=== PATIENT | female | born 1990 | race African-American/Black ===

== ENCOUNTER 2019-12-06 07:46 | Emergency (ER) | payer OTHER, SELFPAY ==
--- NOTE | ~2019-12-06 | XR_ITS ---
EXAMINATION: XR chest 2V DATE: 12/06/2019 09:22 INDICATION: Midline chest pain. Cough, shortness of breath, and fever. TECHNIQUE: Frontal and lateral views of the chest were obtained. COMPARISON: Chest 2 views 09/03/2019 FINDINGS: The chest demonstrates clear lungs without pneumonia, pleural effusion, or pneumothorax. Th e heart size is normal. Pectus excavatum is noted. IMPRESSION: 1. No acute cardiopulmonary disease. Reviewed, dictated and finalized at location A. MARKETING MANAGER
[2019-12-06 08:08] VITALS: BP 120/73; PULSE 106; RESP 20; TEMP 37; O2SAT 100
--- NOTE | 2019-12-06 08:25 | ECG_ITS ---
Measurements Intervals [place] Rate: 105 P: 80 HI: 114 QRS: 68 QRSD: 82 T: 49 QT: 339 QTc: 450 Interpretive Statements SINUS TACHYCARDIA WITH SHORT HI INTERVAL POSSIBLE LEFT ATRIAL ENLARGEMENT INCOMPLETE RIGHT BUNDLE BRANCH BLOCK BASELINE ARTIFACT- I, III, AVL, V1, V3 ABNORMAL ECG Electronically Signed On 12-06-2019 9:24:38 [employer] SCIENT[employer] by Alfredito Hogue D.O.
[2019-12-06 08:54] VITALS: PULSE 84
[2019-12-06 09:42] LABS: Hematocrit 38.3 % (37.0-47.0); Hemoglobin 12.3 g/dL (12.0-15.0); Immature Platelet Fraction Pct 4.2 % (0.9-11.2); Mean Corpuscular HGB Conc 32.1 g/dl (32-36); Mean Corpuscular Hemoglobin 27.5 pg (26-34); Mean Corpuscular Volume 85.5 fl (80-100); Mean Platelet Volume 11.3 fl (7.4-10.4); Platelet Count Result 109 k/mm3 (150-375); Red Blood Count 4.48 M/mm3 (4.2-5.4); Red Cell Distribution Width 13.6 % (11.5-14.5); White Blood Count 2.6 K/mm3 (4.5-10.0)
[2019-12-06 09:50] LABS: INR 0.9; Partial Thromboplastin Time 28.3 SECONDS (22.3-36.8); Prothrombin Time 11.3 Seconds (11.1-14.7)
[2019-12-06 09:52] LABS: Alanine Aminotransferase 62 U/L (4-35); Alkaline Phosphatase 59 U/L (38-126); Aspartate Amino Transferase 41 U/L (14-36); Bilirubin,Total 0.6 mg/dL (0.2-1.3); Blood Urea Nitrogen 9 mg/dL (7-17); Calcium 8.6 mg/dL (8.4-10.2); Carbon Dioxide 26 mmol/L (22-30); Chloride 101 mmol/L (98-107); Estimated CRCL calculation 105 ml/min; Estimated Glomerular Filt Rate > 60; Glucose 98 mg/dL (65-105); Lipase 121 U/L (23-300); Potassium 3.6 mmol/L (3.4-5.0); Sodium 136 mmol/L (137-145)
[2019-12-06 09:53] LABS: D Dimer 0.33 ug/mL (<0.48)
--- NOTE | 2019-12-06 09:55 | ED.SOB ---
HPI - SOB/Dyspnea General Chief Complaint: Shortness of Breath/Dyspnea Stated Complaint: SOB, CP, Cough Time Seen by Provider: 12/06/19 08:17 Source: patient and RN notes reviewed Mode of arrival: ambulatory Limitations: no limitations History of Present Illness HPI Narrative: Pt is a 29 y/o female presenting to the ED c/o cough. Pt reports she started experiencing a dry cough about 2 days ago. Pt also reports pain with cough, N/V after coughing this morning, SOB when coughing, fever of 101 F last night, congestion, and rhinorrhea, but denies ABD pain, BLE swelling, or BLE pain. Pt states she ate and consumed fluids adequately yesterday but has not had anything to eat this morning. Pt states she has positive sick contact with her kids, but denies any of them having the Flu. Pt states she is currently being medicated for possible having Crohn's disease or Ulcerative Colitis, and notes she sees Dr. Aguilera as her GI. Pt notes she had a Colonoscopy in October at [facility]. Pt states she is not currently on control, is not a smoker, and also denies a chance of being . Pt states she has not had any long car ride or air travel recently. Onset (ago): day(s) (2) Context: other (Positive sick contact with children at home) Associated symptoms: fever (of 101 F), nausea/vomiting and other (Pain with cough; SOB when coughing; nasal congestion; rhinorrhea) Related Data Home Medications Medication Instructions Recorded Confirmed folic acid 1 mg PO DAILY 12/06/19 prednisone 40 mg PO DAILY 12/06/19 sulfasalazine 1,000 mg PO TID 12/06/19 Allergies Allergy/AdvReac Type Severity Reaction Status Date / Time No Known Allergies Allergy Unknown Verified 09/03/19 08:40 Review of Systems Review of Systems: Narrative: CONSTITUTIONAL: Reports fever of 101 F. ENT: Reports congestion and rhinorrhea. RESPIRATORY: Reports dyspnea when coughing, dry cough, and pain with cough. GASTROINTESTINAL: Reports nausea and vomiting. Denies abdominal pain. MUSCULOSKELETAL: Denies BLE swelling or BLE pain. All systems reviewed & are unremarkable except as noted in HPI and below PMFSH Past Medical History Medical History No significant past medical history Surgical History Surgical History History of Social History Social History Smoking status: Never smoker Gender identity (if verbalized by the patient): Female Exam Narrative: Exam Narrative: GENERAL: Well-appearing, well-nourished, and in no acute distress. EYES: EOMI. NECK: Supple. CHEST: Clear to auscultation. No respiratory distress. No chest wall tenderness. HEART:Tachycardic with regular rhythm. No murmur heard. Normal peripheral pulses. ABDOMEN: Soft, nontender, nondistended, normal active bowel sounds. EXTREMITIES: Normal range of motion. No edema. No BLE calf tenderness. SKIN: Warm, dry, no rash. NEURO: No focal deficits. Alert and oriented. Course Course Emergency Course: Patient presented for evaluation of febrile illness, found to be afebrile, no respiratory distress. She was reporting some chest pain along with cough and congestion type symptoms. Influenza swab is negative. Patient's EKG and labs are without significant high risk changes. Cardiac risk factors reviewed. Patient is felt low risk for ACS and reasonable for further risk stratification testing as an outpatient. Pain was not sudden or maximal or onset without tearing or ripping quality. No other signs or symptoms to suggest aortic dissection. A low risk well's criteria is noted, PE is felt to be unlikely and d-dimer is not elevated. No pneumonia seen on evaluation today. Patient did well with a period of observation in the ER. No episodes of hypoxia, dysrhythmias. She may have a nonspecific respiratory viral illness as revealed influenza swab is negative. She flores
[2019-12-06 10:04] LABS: Troponin I < 0.012 ng/mL (0.000-0.034)
[2019-12-06] MEDS: FAMOTIDINE 20 MG/2 ML VIAL IV PUSH (10:08)
[2019-12-06] MEDS: ONDANSETRON INJ 4 MG/2 ML VIAL IV PUSH (10:08)
[2019-12-06] MEDS: SODIUM CHLORIDE 0.9% IV 1,000 ML 999 ML IV CONT (10:08)
[2019-12-06 10:10] LABS: Band Neutrophils Percent 7 % (0-6); Lymphocytes Absolute Manual 0.52 K/mm3 (1.1-4.5); Monocytes Absolute Manual 0.07 K/mm3 (0.1-0.90); Monocytes Percent Manual 3 % (3-9); Neutrophils Percent Manual 70 % (46-73); Total Cells Counted 100
[2019-12-06 10:12] LABS: Hypochromasia 2+ (NORMAL); Platelet Estimate Decreased (Adequate)
[2019-12-06 10:26] LABS: Add Urine Microscopic? YES; Appearance Urine Clear (Clear); Bacteria Urine Trace /hpf; Bilirubin Urine Negative (Negative); Blood Urine Negative (Negative); Color Urine Yellow (Yellow); Glucose Urine UA Negative (Negative); Ketones Urine 1+ mg/dL (Negative); Leukocyte Esterase Ur Negative LEU/UL (Negative); Mucus Urine Rare /lpf; Nitrate Urine Negative (Negative); Protein Urine Negative (Negative); RBC Urine 0-2 /hpf (0-2); Specific Grav Ur 1.024 (1.001-1.035); Squamous Epithelial Cell Urine Rare /hpf (Few); Urobilinogen Urine Negative mg/dL (<2.0)
[2019-12-06 10:49] VITALS: BP 112/78; PULSE 84; RESP 18; O2SAT 99
[2019-12-06 12:14] VITALS: BP 106/70; PULSE 72; RESP 18; O2SAT 99
== END 2019-12-06 12:16 | disposition home or self-care (01) ==
PROVIDERS: Emergency Provider Emergency Medicine; PCP Nurse Practitioner Family
DX: R07.89 Other chest pain (principal); J06.9 Acute upper respiratory infection, unspecified; R00.0 Tachycardia, unspecified; R94.31 Abnormal electrocardiogram [ECG] [EKG]; I45.10 Unspecified right bundle-branch block
CPT/HCPCS: 36415; 71046; 80053; 81001; 83690; 84443; 84484; 85025; 85055; 85380; 85610; 85730; 87804; 93005; 96361; 96365; 96375; 99284; J0131; J2405; J7030

== ENCOUNTER 2023-07-05 08:35 | Emergency (ER) | payer OTHER, SELFPAY ==
--- NOTE | ~2023-07-05 | CT_ITS ---
CT of the Abdomen and Pelvis: Indication: Abdominal pain Technique: 2.5 mm axial scans were obtained through the abdomen and pelvis following intravenous adm inistration of 100 cc of Omnipaque 350. Dose reduction technique was used on this scan by utilizing a utomated exposure control and iterative reconstruction technique. The dose-length product (DLP) was 3 98.13 mGy-cm. Findings: Scans through the lung bases are unremarkable. The liver, spleen, pancreas, gallbladder, adrenals and kidneys are within normal limits. No evidence of aortic aneurysm. No lymphadenopathy. No bowel obstruction or bowel wall thickening. There is no evidence to suggest acute appendicitis. Images through the pelvis were performed. Urinary bladder unremarkable. Small bilateral adnexal cysts are present. No other adnexal mass seen. No ascites. Impression: Small bilateral adnexal cysts, otherwise unremarkable exam. Reviewed, dictated and finalized at [facility]. Impression: Small bilateral adnexal cysts, otherwise unremarkable exam.
[2023-07-05 08:39] VITALS: BP 127/70; PULSE 91; RESP 16; TEMP 37; O2SAT 99
[2023-07-05 08:50] VITALS: O2SAT 100
[2023-07-05 09:00] VITALS: O2SAT 100
[2023-07-05 09:01] VITALS: BP 132/103
[2023-07-05 09:16] VITALS: BP 136/89
--- NOTE | 2023-07-05 09:23 | ED.GENADULT ---
[facility] - General Adult General Chief complaint: Back Pain/Injury Stated complaint: back pain Time Seen by Provider: 07/05/23 08:58 Source: patient Mode of arrival: ambulatory Limitations: no limitations History of Present Illness HPI narrative: This is a 32-year-old female with PMH of UC who presents to the ED with chief complaint of lower back pain for the past 3 days. Patient reports it is in both sides of the lower back and acutely radiate into the buttocks area. She reports that it also occasionally radiates into the right lower abdomen. Patient states that she has been having loose stools but no more than usual with her ulcerative colitis. She is unsure if this is a UC flare or not. She has good follow-up with her GI doctor. 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 Denies any specific injuries. Reports that pain is worse with certain movements especially with rotation of the back. Denies fevers, chills, nausea, vomiting, chest pain, shortness of breath, cough, urinary symptoms. Related Data Home Medications Medication Instructions Recorded Confirmed folic acid 1 mg tablet 1 mg PO DAILY 12/06/19 prednisone 20 mg tablet 40 mg PO DAILY 12/06/19 sulfasalazine 500 mg tablet 1,000 mg PO TID 12/06/19 Allergies Allergy/AdvReac Type Severity Reaction Status Date / Time No Known Allergies Allergy Unknown Verified 09/03/19 08:40 Review of Systems Review of Systems: All systems as dictated in [facility] Past Medical History Medical History (Updated 07/05/23 @ 11:09 by Wes Bishop PA-C) No significant past medical history Surgical History Surgical History History of Social History Social History Smoking status: Never smoker Gender identity (if verbalized by the patient): Female Exam Narrative: GENERAL: Well-appearing, well-nourished, and in no acute distress. HEAD: Normocephalic, atraumatic. EYES: PERRLA and EOMI. ENT: Nares clear, no rhinorrhea or epistaxis. Mucous membranes moist. Oropharynx without tonsillar hypertrophy exudate or other lesions. NECK: Supple. No adenopathy or masses. CHEST: No respiratory distress. Clear to auscultation. No wheezes rales or rhonchi HEART: Regular rate and rhythm. No murmur heard. Normal peripheral pulses. ABDOMEN: Negative flank tenderness bilaterally. Soft, nontender, nondistended, normal active bowel sounds. MSK: Paraspinal lumbar muscle tenderness bilaterally. SI joint tenderness bilaterally. Negative straight leg raise. Pain worsened with active rotation of the spine bilaterally. No midline spinal tenderness. SKIN: Warm, dry, no rash. NEURO: Alert and oriented x3. No focal deficits. PSYCH: Normal mood and affect. Course Course Emergency Course: Reevaluation 1000: Examination shows patient is doing very well. Abdominal exam benign. She is ready to go home. Vital Signs Vital signs: Vital Signs Temperature 98.6 F 07/05/23 08:39 Pulse Rate 91 07/05/23 08:39 Respiratory Rate 16 07/05/23 08:39 Blood Pressure 127/70 07/05/23 08:39 Pulse Oximetry 99 07/05/23 08:39 Oxygen Delivery Room Air 07/05/23 08:39 Temperature 98.6 F 07/05/23 08:39 Pulse Rate 91 07/05/23 08:39 Respiratory Rate 16 07/05/23 08:39 Blood Pressure 135/68 07/05/23 10:06 Pulse Oximetry 100 07/05/23 09:00 Oxygen Delivery Room Air 07/05/23 08:39 Medical Decision Making MDM Narrative Medical decision making narrative: This is a 32-year-old female who presents to the ED with chief complaint of right lower back pain occasionally radiating into the right lower abdomen. Vitals are normal. Exam does reveal tenderness in the paraspinal lumbar region. Lab work is unremarkable. UA is negative for any infection. CT scan of the abdomen pelvis was ordered and does not show any
[2023-07-05 09:26] LABS: Basophils Percent Auto 0.4 % (0.2-1.2); Eosinophils Absolute Auto 0.1 K/mm3 (0-0.3); Eosinophils Percent Auto 2.4 % (0-4.4); Hematocrit 38.7 % (37.0-47.0); Hemoglobin 12.3 g/dL (12.0-15.0); Immature Granulocyte Absolute 0.01 K/mm3 (0.00-0.031); Immature Granulocyte Percent A 0.2 % (0-0.5); Lymphocytes Absolute Auto 1.52 K/mm3 (0.9-3.2); Lymphocytes Percent Auto 30.9 % (18.3-44.2); Mean Corpuscular HGB Conc 31.8 g/dl (32-36); Mean Corpuscular Hemoglobin 27.4 pg (26-34); Mean Corpuscular Volume 86.2 fl (80-100); Mean Platelet Volume 11.1 fl (7.4-10.4); Monocytes Absolute Auto 0.3 K/mm3 (0.1-0.6); Monocytes Percent Auto 6.7 % (2.6-8.5); Neutrophils Absolute Auto 2.9 K/mm3 (1.3-6.7); Neutrophils Percent Auto 59.4 % (45.5-73.1); Platelet Count Result 178 k/mm3 (150-375); Red Blood Count 4.49 M/mm3 (4.2-5.4); Red Cell Distribution Width 14.1 % (11.5-14.5); White Blood Count 4.9 K/mm3 (4.5-10.0)
[2023-07-05 09:39] LABS: Alanine Aminotransferase 28 U/L (6-35); Alkaline Phosphatase 65 U/L (38-126); Anion Gap 3 mmol/L (8-16); Aspartate Amino Transferase 27 U/L (14-36); Bilirubin,Total 0.7 mg/dL (0.2-1.3); Blood Urea Nitrogen 13 mg/dL (7-17); Calcium 8.7 mg/dL (8.4-10.2); Carbon Dioxide 29 mmol/L (22-30); Chloride 106 mmol/L (98-107); Estimated CRCL calculation 80 ml/min; Estimated Glomerular Filt Rate > 60; Glucose 98 mg/dL (65-110); Potassium 3.9 mmol/L (3.4-5.0); Sodium 138 mmol/L (137-145)
[2023-07-05 09:55] LABS: Appearance Urine Clear (Clear); Bilirubin Urine Negative (Negative); Blood Urine Negative (Negative); Color Urine Yellow (Yellow); Glucose Urine UA Negative (Negative); Ketones Urine Trace mg/dL (Negative); Leukocyte Esterase Ur Negative LEU/UL (Negative); Nitrate Urine Negative (Negative); Protein Urine Negative (Negative); Specific Grav Ur 1.031 (1.001-1.035); pH Urine 5.5 (5.0-9.0)
[2023-07-05 10:06] VITALS: BP 135/68
[2023-07-05 10:09] LABS: Add Urine Microscopic? NO
== END 2023-07-05 11:33 | disposition home or self-care (01) ==
PROVIDERS: Emergency Provider Physician Assistant; PCP Physician Assistant
DX: S39.012A Strain of muscle, fascia and tendon of lower back, initial encounter (principal); X58.XXXA Exposure to other specified factors, initial encounter
CPT/HCPCS: 36415; 74177; 80053; 81003; 81025; 85025; 99284; Q9967

== ENCOUNTER 2024-01-31 16:32 | Emergency (ER) | payer OTHER, SELFPAY ==
[2024-01-31 16:58] VITALS: BP 123/71; PULSE 88; RESP 16; TEMP 37.4; O2SAT 100
--- NOTE | 2024-01-31 17:02 | ED.DENTAL ---
HPI - Dental/Oral General Chief complaint: Dental/Oral Stated complaint: right tooth pain Time Seen by Provider: 01/31/24 17:02 Source: patient, RN notes reviewed and old records reviewed Mode of arrival: ambulatory Limitations: no limitations History of Present Illness HPI Narrative: 33-year-old female presents to the [facility] with complaints of right-sided dental issue as well as a loose right-sided tooth. States she has recently been diagnosed with an abscess to the right upper 1st molar however she has had dental issues for ?a while. Recently finished. Currently denies any pain. Was concerned that the tooth is not getting any better. Patient reports a dental appointment at end of March in the [facility] prior to arrival: other (Antibiotics) Related Data Home Medications Medication Instructions Recorded Confirmed drospirenone (contraceptive) 4 mg 01/31/24 () tablet (Slynd) mesalamine 4 gram/60 mL enema g RECTAL 01/31/24 Allergies Allergy/AdvReac Type Severity Reaction Status Date / Time No Known Allergies Allergy Unknown Verified 09/03/19 08:40 Review of Systems Review of Systems: All systems reviewed & are unremarkable except as noted in HPI and below Constitutional: Constitutional: Reports no additional constitutional complaints Eyes: Eyes: Reports no additional eye complaints ENT: Reports as per HPI Cardiovascular: Cardiovascular: Reports no additional cardiovascular complaints, Denies chest pain and Denies dyspnea Respiratory: Respiratory: Reports no additional respiratory complaints, Denies chest congestion, Denies cough and Denies dyspnea Gastrointestinal: Gastrointestinal: Reports no additional gastrointestinal complaints, Denies abdominal pain, Denies nausea and Denies vomiting Musculoskeletal: Musculoskeletal: Reports no additional musculoskeletal complaints Integumentary/Breasts: Skin/Breast: Reports system reviewed and no additional complaints, except as docu Neurologic: Reports system reviewed and no additional complaints, except as documented Psychiatric: Psychiatric: Reports no additional psychiatric complaints Allergic/Immunologic: Allergic/Immunologic: Reports no additional allergic/immunologic complaints PMFSH Past Medical History Medical History No significant past medical history Surgical History Surgical History History of Social History Social History Smoking status: Never smoker Gender identity (if verbalized by the patient): Female Comments At the time of my signature, I reviewed and agree with the nursing past medical, surgical, social, and family history. There is no relevant family history pertinent to the patient complaint. Exam Const: General: cooperative, healthy appearing, comfortable, no acute distress, well developed, alert and well nourished Nutritional Appearance: well nourished Orientation/consciousness: patient oriented x3 Limitations: no limitations HENMT: Head: normal to inspection Ears: hearing grossly normal bilaterally, external ears normal, TM's normal bilaterally, EAC's normal, mastoids normal and no periauricular adenopathy Face/Nose/Sinus: Normal external nose present, Normal nares present, Normal nasal mucous membranes and turbinates present, normal facial exam and face symmetric Face and sinus: normal facial exam and face symmetric Mouth: Yes Normal oral and palatal mucosa present, Yes lip normal and Yes moist mucous membranes Teeth and gingiva: gingiva normal, caries and poor dentition Throat: posterior oropharynx normal, uvula midline and no uvular edema Other: Patient with poor dentition, concern for 1st molar crack, no erythema, pain, swelling noted to the gingiva. Discussed with patient that [facility]
== END 2024-01-31 17:37 | disposition home or self-care (01) ==
PROVIDERS: Emergency Provider Nurse Practitioner; PCP Physician Assistant
DX: K02.9 Dental caries, unspecified (principal)
CPT/HCPCS: 99211; G0463

== ENCOUNTER 2024-08-07 18:41 | Emergency (ER) | payer OTHER, SELFPAY ==
--- NOTE | ~2024-08-07 | XR_ITS ---
Clinical Indication: Chest pain PA and lateral views of the chest: Comparison: 12/06/2019 Findings: The lungs are clear, without evidence of focal consolidation or pleural effusion. Cardiome diastinal silhouette is within normal limits. Bones and soft tissues are unremarkable. Impression: Normal chest. Reviewed, dictated and finalized at location . Impression: Normal chest.
[2024-08-07 18:45] VITALS: BP 128/82; PULSE 124; RESP 17; TEMP 36.4; O2SAT 100
--- NOTE | 2024-08-07 18:45 | ECG_ITS ---
Test Date: 2024-08-07 18:53:29 Measurements Intervals [place] Rate: 119 P: 76 WV: 127 QRS: 67 QRSD: 90 T: 57 QT: 329 QTc: 464 Interpretive Statements SINUS TACHYCARDIA POSSIBLE LEFT ATRIAL ENLARGEMENT [-0.1mV P WAVE IN V1/V2] NONSPECIFIC T-WAVE ABNORMALITY ABNORMAL RHYTHM ECG No previous ECG available for comparison Electronically Signed On 08-08-2024 10:37:45 CDT by Zeus Chairez M.D.
[2024-08-07 23:24] VITALS: O2SAT 100
[2024-08-07 23:59] VITALS: PULSE 102; RESP 16; O2SAT 100
[2024-08-08] VITALS: PULSE 90; RESP 14; O2SAT 100
[2024-08-08 00:01] VITALS: BP 115/67; PULSE 90; RESP 22; O2SAT 100
[2024-08-08 00:16] VITALS: BP 104/68; PULSE 86; RESP 22; O2SAT 100
[2024-08-08 00:17] VITALS: PULSE 85; RESP 19; O2SAT 100
[2024-08-08 00:28] LABS: Basophils Absolute Auto 0.1 K/mm3 (0.0-0.1); Basophils Percent Auto 0.6 % (0.2-1.2); Eosinophils Absolute Auto 0.2 K/mm3 (0-0.3); Hematocrit 41.7 % (37.0-47.0); Hemoglobin 13.8 g/dL (12.0-15.0); Immature Granulocyte Absolute 0.02 K/mm3 (0.00-0.031); Immature Granulocyte Percent A 0.2 % (0-0.5); Lymphocytes Absolute Auto 1.93 K/mm3 (0.9-3.2); Lymphocytes Percent Auto 22.3 % (18.3-44.2); Mean Corpuscular HGB Conc 33.1 g/dl (32-36); Mean Corpuscular Hemoglobin 28.3 pg (26-34); Mean Corpuscular Volume 85.6 fl (80-100); Mean Platelet Volume 11.9 fl (7.4-10.4); Monocytes Absolute Auto 0.4 K/mm3 (0.1-0.6); Monocytes Percent Auto 5.1 % (2.6-8.5); Neutrophils Percent Auto 69.8 % (45.5-73.1); Platelet Count Result 225 k/mm3 (150-375); Red Blood Count 4.87 M/mm3 (4.2-5.4); White Blood Count 8.6 K/mm3 (4.5-10.0)
--- NOTE | 2024-08-08 00:28 | ED.GENADULT ---
HPI - General Adult General Chief complaint: Chest Pain Stated complaint: midsternal chest pain since this am Time Seen by Provider: 08/07/24 23:55 History of Present Illness HPI narrative: Patient 33-year-old female who presents emergency department with chief complaint of chest pain. Patient reports she started having sharp pleuritic pain in the left side of her chest in the sternal border patient reports the pain is worse with inspiration worse with movement. The patient reports no trauma reports that she has history of ulcerative colitis. Related Data Home Medications Medication Instructions Recorded Confirmed drospirenone (contraceptive) 4 mg 01/31/24 () tablet (Slynd) mesalamine 4 gram/60 mL enema g RECTAL 01/31/24 Allergies Allergy/AdvReac Type Severity Reaction Status Date / Time ketorolac [From Toradol] AdvReac Dizziness Verified 08/07/24 18:43 Review of Systems Review of Systems: A 10 system review of systems was completed on the patient and is negative except for what is stated in the HPI. Nursing and ancillary documentation was reviewed. [facility] Past Medical History Medical History (Updated 08/08/24 @ 01:52 by Bronson Simpson MD) No significant past medical history Surgical History Surgical History History of Social History Social History Smoking status: Never smoker Gender identity (if verbalized by the patient): Female Exam Narrative: GENERAL: Well-appearing, well-nourished, and in no acute distress. HEAD: Normocephalic, atraumatic. EYES: PERRLA and EOMI. ENT: Nares clear, no rhinorrhea or epistaxis. Mucous membranes moist. NECK: Supple. CHEST: Clear to auscultation. No respiratory distress. Chest wall is tender to palpation left sternal border HEART: Tachycardic rate and regular rhythm. No murmur heard. Normal peripheral pulses. ABDOMEN: Soft, nontender, nondistended, normal active bowel sounds. EXTREMITIES: Normal range of motion. No edema. SKIN: Warm, dry, no rash. NEURO: No focal deficits. Alert and oriented x3. PSYCH: Normal mood and affect. Course Vital Signs Vital signs: Vital Signs Temperature 36.4 C 08/07/24 18:45 Pulse Rate 124 H 08/07/24 18:45 Respiratory Rate 17 08/07/24 18:45 Blood Pressure 128/82 08/07/24 18:45 Pulse Oximetry 100 08/07/24 18:45 Oxygen Delivery Room Air 08/07/24 18:45 Temperature 36.4 C 08/07/24 18:45 Pulse Rate 91 08/08/24 00:30 Respiratory Rate 24 H 08/08/24 00:30 Blood Pressure 104/68 08/08/24 00:16 Pulse Oximetry 99 08/08/24 00:30 Oxygen Delivery Room Air 08/07/24 23:24 Medical Decision Making MDM Narrative Medical decision making narrative: Differential diagnosis includes costochondritis, chest wall pain, pulmonary embolism, ACS EKG showed no acute ischemic changes Patient was tachycardic with pleuritic chest pain. Due to this the patient underwent a D-dimer test Troponin was negative D-dimer was negative. Chest x-ray showed no evidence of pneumothorax or wide mediastinum Patient discharged home on diclofenac Vital Signs Vital Signs: Vital Signs Temperature 36.4 C 08/07/24 18:45 Pulse Rate 124 H 08/07/24 18:45 Respiratory Rate 17 08/07/24 18:45 Blood Pressure 128/82 08/07/24 18:45 Pulse Oximetry 100 08/07/24 18:45 Oxygen Delivery Room Air 08/07/24 18:45 Temperature 36.4 C 08/07/24 18:45 Pulse Rate 91 08/08/24 00:30 Respiratory Rate 24 H 08/08/24 00:30 Blood Pressure 104/68 08/08/24 00:16 Pulse Oximetry 99 08/08/24 00:30 Oxygen Delivery Room Air 08/07/24 23:24 Lab Data 08/08/24 00:23 08/08/24 00:23 Labs: Lab Results 08/08/24 08/08/24 Range/Units 00:23 01:42 WBC 8.6 (4.5-10.0) K/mm3 RBC 4.87 (4.2-5.4) M/mm3 Hgb 13
[2024-08-08 00:30] VITALS: PULSE 91; RESP 24; O2SAT 99
[2024-08-08 00:40] LABS: Alanine Aminotransferase 19 U/L (6-35); Albumin Level 4.7 g/dL (3.5-5.1); Alkaline Phosphatase 77 U/L (38-126); Anion Gap 9 mmol/L (4-12); Aspartate Amino Transferase 24 U/L (14-36); Bilirubin,Total 0.7 mg/dL (0.2-1.3); Blood Urea Nitrogen 17 mg/dL (7-17); Calcium 9.6 mg/dL (8.4-10.2); Carbon Dioxide 27 mmol/L (22-30); Chloride 105 mmol/L (98-107); Estimated CRCL calculation 71 ml/min; Estimated Glomerular Filt Rate > 60; Glucose 91 mg/dL (65-110); INR 0.9; Potassium 4.1 mmol/L (3.4-5.0); Prothrombin Time 12.6 Seconds (11.1-14.7); Sodium 141 mmol/L (137-145)
[2024-08-08 00:41] LABS: Partial Thromboplastin Time 25.7 Seconds (22.3-36.8)
[2024-08-08 00:51] LABS: Troponin I < 0.012 ng/mL (0.000-0.034)
[2024-08-08 01:03] LABS: D Dimer < 0.27 ug/mL (<0.48)
[2024-08-08 01:54] LABS: Add Urine Microscopic? YES; Appearance Urine Clear (Clear); Bacteria Urine 2+ /hpf; Bilirubin Urine Negative (Negative); Blood Urine Negative (Negative); Color Urine Yellow (Yellow); Glucose Urine UA Negative (Negative); Ketones Urine Trace mg/dL (Negative); Leukocyte Esterase Ur 1+ LEU/UL (Negative); Nitrate Urine Negative (Negative); Non Pathogenic Casts 0-2; Protein Urine Trace mg/dL (Negative); Specific Grav Ur 1.032 (1.001-1.035); Squamous Epithelial Cell Urine Occasional /hpf (Few); pH Urine 7.5 (5.0-9.0)
[2024-08-08 02:15] VITALS: BP 117/81; PULSE 78; RESP 18; TEMP 36.6; O2SAT 98
== END 2024-08-08 02:17 | disposition home or self-care (01) ==
PROVIDERS: Emergency Provider Emergency Medicine; PCP Physician Assistant
DX: R07.89 Other chest pain (principal); R94.31 Abnormal electrocardiogram [ECG] [EKG]; R00.0 Tachycardia, unspecified
CPT/HCPCS: 36415; 71046; 80053; 81001; 81025; 84484; 85025; 85380; 85610; 85730; 87086; 93005; 99284

== ENCOUNTER 2024-11-24 06:25 | Emergency (ER) | payer OTHER, SELFPAY ==
--- NOTE | ~2024-11-24 | CT_ITS ---
EXAMINATION: CT abdomen pelvis w con DATE: 11/24/2024 08:03 INDICATION: Rectal bleeding post colonoscopy. TECHNIQUE: Computed tomography (CT) of the abdomen and pelvis was performed with 100 mL Omnipaque 350 intravenous contrast. Automated exposure control and iterative reconstruction technique were employe d. The dose-length product was 350.85 mGy-cm. COMPARISON: CT abdomen and pelvis 07/05/2023 FINDINGS: The visualized portions of the lung bases demonstrate mild atelectasis on the left. No pleu ral effusion. The heart size is normal. No pericardial effusion. The liver, gallbladder, spleen, panc reas, adrenal glands, and kidneys are normal. There are no dilated loops of bowel. The appendix is no rmal. There are no pathologically enlarged lymph nodes. There is no free intraperitoneal fluid. There is mild lumbar spondylosis. IMPRESSION: 1. No etiology for blood in stool. Reviewed, dictated and finalized at location [] E [employer]
[2024-11-24 06:27] VITALS: BP 107/84; PULSE 88; RESP 17; TEMP 36.4; O2SAT 97
[2024-11-24 06:51] LABS: Basophils Percent Auto 0.4 % (0.2-1.2); Eosinophils Absolute Auto 0.4 K/mm3 (0-0.3); Hematocrit 41.2 % (37.0-47.0); Hemoglobin 13.1 g/dL (12.0-15.0); Immature Granulocyte Absolute 0.02 K/mm3 (0.00-0.031); Immature Granulocyte Percent A 0.3 % (0-0.5); Lymphocytes Absolute Auto 2.41 K/mm3 (0.9-3.2); Lymphocytes Percent Auto 31.1 % (18.3-44.2); Mean Corpuscular HGB Conc 31.8 g/dl (32-36); Mean Corpuscular Hemoglobin 27.3 pg (26-34); Mean Platelet Volume 10.2 fl (7.4-10.4); Monocytes Absolute Auto 0.4 K/mm3 (0.1-0.6); Monocytes Percent Auto 5.7 % (2.6-8.5); Neutrophils Absolute Auto 4.5 K/mm3 (1.3-6.7); Neutrophils Percent Auto 57.5 % (45.5-73.1); Platelet Count Result 238 k/mm3 (150-375); Red Blood Count 4.79 M/mm3 (4.2-5.4); Red Cell Distribution Width 13.2 % (11.5-14.5); White Blood Count 7.7 K/mm3 (4.5-10.0)
[2024-11-24 06:56] VITALS: BP 100/59; PULSE 81; RESP 17; O2SAT 100
[2024-11-24 07:03] LABS: Alanine Aminotransferase 28 U/L (6-35); Albumin Level 4.4 g/dL (3.5-5.1); Alkaline Phosphatase 69 U/L (38-126); Anion Gap 11 mmol/L (4-12); Aspartate Amino Transferase 29 U/L (14-36); Bilirubin,Total 0.8 mg/dL (0.2-1.3); Blood Urea Nitrogen 14 mg/dL (7-17); Calcium 8.9 mg/dL (8.4-10.2); Carbon Dioxide 28 mmol/L (22-30); Chloride 102 mmol/L (98-107); Estimated CRCL calculation 78 ml/min; Estimated Glomerular Filt Rate > 60; Glucose 99 mg/dL (65-110); Potassium 3.6 mmol/L (3.4-5.0); Sodium 141 mmol/L (137-145)
--- NOTE | 2024-11-24 07:18 | ED_ITS ---
HPI - General Adult General Chief complaint: GI Bleed Stated complaint: colonoscopy complications, bright blood in stool Time Seen by Provider: 11/24/24 06:56 History of Present Illness HPI narrative: 34-year-old female presenting to the emergency department for evaluation of rectal bleeding. Patient does have history of ulcerative colitis and states she does passed blood every day. Patient states that she was in [place] on the and had a colonoscopy with biopsies. Patient states that she has been having increased bleeding rectally. Patient denies any associated pain with this. Patient was ill-appearing at time of evaluation. Related Data Home Medications ?Medication ?Instructions ?Recorded ?Confirmed ?Last Taken ?Type drospirenone (contraceptive) 4 mg 01/31/24 Unknown History (28) tablet (Slynd) mesalamine 4 gram/60 mL enema g RECTAL 01/31/24 Unknown History Allergies Allergy/AdvReac Type Severity Reaction Status Date / Time ketorolac (From Toradol) AdvReac Dizziness Verified 11/24/24 06:26 Review of Systems 2 Review of Systems: All systems reviewed & are unremarkable except as noted in HPI and below PMFSH Past Medical History Medical History (Updated 11/24/24 @ 08:18 by Alvin Booth MD) No significant past medical history Surgical History Surgical History History of Social History Social History Smoking status: Never smoker Gender identity (if verbalized by the patient): Female Exam 2 Narrative: APPEARANCE: Well appearing, no pain, no distress, well-nourished. HEAD: normocephalic, atraumatic. EYES: PERRLA/EOMI, conjunctivae clear. NOSE: Normal no drainage EARS:TMS clear with good light reflex. THROAT: Pharynx clear, no exudate. NECK: Supple. No adenopathy, no masses. RESPIRATORY: Airway patent, respirations nonlabored. Clear to auscultation bilaterally, no rales, rhonchi, wheezing. CARDIOVASCULAR: Regular rate and rhythm without murmurs rubs or gallops. ABDOMINAL: Soft, nontender, nondistended, normal bowel sounds MUSCULOSKELETAL: Moves all extremities. Strength/ROM intact, No edema, No calf tenderness. NEURO: Alert. Cranial nerves II through XII intact. Good gait. Good coordination SKIN: Warm, dry. Normal Color Course Vital Signs Vital signs: Vital Signs Temperature 97.6 F 11/24/24 06:27 Pulse Rate 88 11/24/24 06:27 Respiratory Rate 17 11/24/24 06:27 Blood Pressure 107/84 11/24/24 06:27 Pulse Oximetry 97 11/24/24 06:27 Oxygen Delivery Room Air 11/24/24 06:27 Temperature 97.6 F 11/24/24 06:27 Pulse Rate 81 11/24/24 06:56 Respiratory Rate 17 11/24/24 06:56 Blood Pressure 100/59 L 11/24/24 06:56 Pulse Oximetry 100 11/24/24 06:56 Oxygen Delivery Room Air 11/24/24 06:27 Medical Decision Making MDM Narrative Medical decision making narrative: 34-year-old female presents emergency department for evaluation for rectal bleeding and the context of recent colonoscopy with biopsies. Patient is afebrile with a stable hemoglobin of 13.1. No acute abnormalities on the patient's CMP. CT scan showed no acute abnormality. On re-evaluation patient confirmed that she is still well appearing with no complaints. Patient was encouraged close follow-up with her GI physicians at [facility]. All questions concerns were addressed Differential Diagnosis Differential Diagnosis: Colitis, diverticulitis, GI bleed, internal hemorrhoids, external hemorrhoids Vital Signs Vital Signs: Vital Signs Temperature 97.6 F 11/24/24 06:27 Pulse Rate 88 11/24/24 06:27 Respiratory Rate 17 11/24/24 06:27 Blood Pressure 107/84 11/24/24 06:27 Pulse Oximetry 97 11/24/24 06:27 Oxygen Delivery Room Air 11/24/24 06:27 Temperature 97.6 F 11/24/24 06:27 Pulse Rate 81 11/24/24 06:56 Respiratory Rate 17 11/24/24 06:56 Blood Pressure 100/59 L 11/24/24 06:56 Pulse Oximetry 100 11/24/24 06:56 Oxygen Delivery Room Air 11/24/24 06:27 Lab Data Lab results reviewed: Yes I reviewed the patient's lab results. 11/24/24 06:41 11/24/24 06:41 Labs: Lab Results 11/24/24 11/24/24 Range/Units 06:41 07:46 WBC 7.7 (4.5-10.0) K/mm3 RBC 4.79 (4.2-5.4) M/mm3 Hgb 13.1 (12.0-15.0) g/dL Hct 41.2 (37.0-47.0) % MCV 86.0 (80-100) fl MCH 27.3 (26-34) pg MCHC 31.8 L (32-36) g/dl RDW 13.2 (11.5-14.5) % Plt Count 238 (150-375) k/mm3 MPV 10.2 (7.4-10.4) fl Immature Gran % (Auto) 0.3 (0-0.5) % Neut % (Auto) 57.5 (45.5-73.1) % Lymph % (Auto) 31.1 (18.3-44.2) % [place] % (Auto) 5.7 (2.6-8.5) % Eos % (Auto) 5.0 H (0-4.4) % Baso % (Auto) 0.4 (0.2-1.2) % Lymph # (Auto) 2.41 (0.9-3.2) K/mm3 [place] # (Auto) 0.4 (0.1-0.6) K/mm3 Eos # (Auto) 0.4 H (0-0.3) K/mm3 Baso # (Auto) 0.0 (0.0-0.1) K/mm3 Abs Immat Gran (auto) 0.02 (0.00-0.031) K/mm3 Absolute Neuts (auto) 4.5 (1.3-6.7) K/mm3 Absolute Nucleated RBC 0.000 (0.0-0.012) K/mm3 Nucleated RBC % 0.0 (0.0-0.2) % PT 12.5 (11.1-14.7) Seconds INR 0.9 APTT 28.6 (22.3-36.8) Seconds Sodium 141 (137-145) mmol/L Potassium 3.6 (3.4-5.0) mmol/L Chloride 102 (98-107) mmol/L Carbon Dioxide 28 (22-30) mmol/L Anion Gap 11 (4-12) mmol/L BUN 14 (7-17) mg/dL Creatinine 0.80 (0.7-1.0) mg/dL Estim Creat Clear Calc 78 ml/min Estimated GFR > 60 (59 - ) Glucose 99 (65-110) mg/dL Calcium 8.9 (8.4-10.2) mg/dL Total Bilirubin 0.8 (0.2-1.3) mg/dL AST 29 (14-36) U/L ALT 28 (6-35) U/L Alkaline Phosphatase 69 (38-126) U/L Total Protein 8.0 (6.3-8.2) g/dL Albumin 4.4 (3.5-5.1) g/dL POC Urine HCG, Qual Negative (Negative) Blood Type B Positive Antibody Screen Negative Imaging Data Radiologist's impression: Impressions Abdomen/Pelvis CT 11/24/24 08:07 IMPRESSION: 1. No etiology for blood in stool. Discharge Plan Discharge Clinical Impression: Rectal bleed Patient Disposition: Home, Self-Care Condition: Stable Instructions: Antibiotic Form, Rectal Bleeding (ED) Additional Instructions: Continue to have close follow-up with GI. Drink plenty of fluids. If you have any worsening symptoms then please call or return to the emergency department. Patient Language: Nigerian Prescriptions: No Action mesalamine 4 gram/60 mL enema RECTAL Slynd 4 mg (28) tablet diclofenac potassium 50 mg tablet 50 mg PO TID PRN (Reason: pain) Qty: 30 0RF albuterol sulfate 90 mcg/actuation aero powdr breath act w/sensor 1 inh INHALATION Q4-6H PRN (Reason: shortness of breath or wheezing) Qty: 1 0RF Follow-up/Referrals: Clotilde,BRETT Boateng [Primary Care Provider] -
[2024-11-24 07:44] LABS: INR 0.9; Prothrombin Time 12.5 Seconds (11.1-14.7)
[2024-11-24 07:45] LABS: Partial Thromboplastin Time 28.6 Seconds (22.3-36.8)
[2024-11-24 07:48] LABS: BEDSIDEPREGUCG Negative (Negative)
--- OUTSIDE RECORDS SUMMARY | 2024-11-27 11:26 | XMS_ITS | Referral Summary ---
Author Organization [facility] Address [address] [place] [address] Care Team Providers Care Meter Tester Name Role Phone Stephanieosman Tasneem Baird PA-C Primary Care Provider [phone] Source Comments [facility],non-owned Affiliates and Associated Physician Practices is amultiple site organization consisting of ambulatory clinics and hospital sitesin [place], [place], [place] and [place]. This disclosure is being madepursuant to the Care Everywhere program and may not contain all information available regarding this patient. Last updated 18.[facility] Encounters Date Type Department Care Team Description 11/24/2024 Travel 11/20/2024 Travel 11/20/2024 1:56 PM ENGINE MONITOR Anesthesia Event [facility] [address] [place] [id number] Serena Li DO Han, Jason A, MD 11/20/2024 2:00 PM ENGINE MONITOR - 11/20/2024 2:30 PM ENGINE MONITOR Surgery [facility] [address] [place] [address] Ronni Dave MD COLONOSCOPY DIAGNOSTIC 11/20/2024 1:03 PM ENGINE MONITOR - 11/20/2024 3:10 PM ENGINE MONITOR Hospital Encounter [facility] [address] [place] [address] Ronni Dave MD Surgery General Discharge Disposition: Home or Self Care 11/17/2024 Orders Only [facility] [place] [address] [address], [address] [place] [phone] Thelma Ibarra APRN-MARCO 11/06/2024 Travel 11/06/2024 9:00 AM ENGINE MONITOR Office [place] [facility] [place] [address] [address], [address] [place] [address] Ronni Dave MD Ulcerative colitis with complication, unspecified location (HCC) (Primary Dx); Loose stools 09/24/2024 Travel from Last 3 Months Allergies Active Allergy Reactions Criticality Noted Date Comments Ketorolac Other,Dizziness,Headache Medium 09/06/2019 Dizziness/Light Headed Medications * Be aware that medications may not be up to date on this document. Alwaysverify current medications with the patient. Medication Sig Dispensed Refills Start Date End Date Status sulfaSALAzine EC (Azulfidine Entab) 500 MG tabletIndications :Proctitis Take 1 (one) tablet by mouth 2 times daily 60 tablet 2 01/23/2023 Active Additional Information Patient not taking.Reported on 11/06/2024 mesalamine (Rowasa) 4 g enema Insert 1 (one) enema into the rectum at bedtime 90 enema 4 05/31/2023 Active Additional Information Patient not taking.Reported on 11/06/2024 polyethylene glycol (Golytely) solution Take 4,000 mL by mouth once for 1 dose 4000 mL 11/06/2024 11/06/2024 Active Problems Problem Noted Date Diagnosed Date 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 Patterson for further evaluation/second opinion. Her labs are stable. Await further recommendations. Social History Tobacco Use Types Packs/Day Years Used Date Smoking Tobacco: Never Smokeless Tobacco: Never Alcohol Use Standard Drinks/Week Comments Never 0 (1 standard drink = 0.6 oz pur e alcohol) Sex and Gender Information Value Date Recorded Sex Assigned at Female 01/22/2023 2:01 PM CDT Gender Identity Female 01/22/2023 2:01 PM CDT Sexual Orientation Straight 01/22/2023 2: 01 PM CDT Last Filed Vital Signs Vital Sign Reading Time Taken Comments Blood Pressure 91/53 11/20/2024 2:40 PM ENGINE MONITOR Pulse 91 11/20/2024 2:40 PM ENGINE MONITOR Temperature 36.2 ??C (97.2 ??F) 11/20/2024 2:25 PM CS T Respiratory Rate 13 11/20/2024 2:40 PM ENGINE MONITOR Oxygen Saturation 100% 11/20/2024 2:40 PM ENGINE MONITOR Inhaled Oxygen Concentration - - Weight 69.8 kg (153 lb 12.8 oz) 11/06/2024 8:59 AM ENGINE MONITOR Height 167.6 cm (5' 6 ) 05/31/2023 8:32 AM CDT Body Mass Index 24.82 05/31/2023 8:32 AM CDT Plan of Treatment Upcoming Encounters Date Type Department Care Team (Late st Contact Info) Description 02/26/2025 8:40 AM CDT Office Visit [facility] [place] [address] [address], [facility] [address] [place] [address] [place] [id number] [facility] [address] [place] [address] Procedures Procedure Name Priority Date/Time Associated Diagnosis Comments HCG URINE QUAL POCT NOTIFICATION STAT 11/20/2024 2:30 PM ENGINE MONITOR Pre-op exam PATHOLOGY TISSUE EXAM (STL) Routine 11/20/2024 2:18 PM ENGINE MONITOR Diagnosis deferred HI COLONOSCOPY, DIAGNOSTIC 11/20/2024 2:00 PM ENGINE MONITOR ENDOSCOPY, COLON, DIAGNOSTIC Routine 11/20/2024 1:31 PM ENGINE MONITOR Ulcerative colitis with complication, unspecified location (HCC) HCG URINE QUALITATIVE - POCT (IP) INTERFACED Routine 11/20/2024 1:26 PM ENGINE MONITOR THIOPURINE+METABOLITE PANEL 11/17/2024 1:56 PM ENGINE MONITOR QUANTIFERON-TB GOLD PLUS 1-TUBE 11/17/2024 1:56 PM ENGINE MONITOR HEPATITIS PANEL Routine 11/17/2024 1:56 PM ENGINE MONITOR Ulcerative colitis with complication, unspecified location (HCC) C-REACTIVE PROTEIN Routine 11/17/2024 1: 56 PM ENGINE MONITOR Ulcerative colitis with complication, unspecified location (HCC) Loose stools COMPREHENSIVE METABOLIC PANEL Routine 11/17/2024 1:56 PM ENGINE MONITOR Ulcerative colitis with complication, unspecified location (HCC) CBC W AUTO DIFFERENTIAL Routine 11/17/2024 1:56 PM ENGINE MONITOR Ulcerative colitis with complication, unspecified location (HCC) LAB RESULTS ORDER 11/17/2024 LAB RESULTS ORDER 11/17/2024 LAB RESULTS ORDER 11/17/2024 from Last 3 Months Results * HCG URINE QUAL POCT NOTIFICATION (11/20/2024 2:30 PM ENGINE MONITOR) Comment Notification Label Only - See Separate Report 11/20/2024 2:30 PM ENGINE MONITOR [facility] Urine URINE / Unknown 1:15 PM ENGINE MONITOR Ronni Dave MD LAB - URINALYSIS O RDERABLES [facility] [address] [place] [address] * PATHOLOGY TISSUE EXAM (STL) (11/20/2024 2:18 PM ENGINE MONITOR) Case Report Surgical Pathology Report ? Case: [id number] ? Authorizing Provider: ??Ronni Dave MD ?Collected: ? 11/20/2024 02:18 PM ? Ordering Location: ? [facility] Received: ?11/21/2024 06:46 AM ? - Endoscopy Services ? Pathologist: ? Risa Vazquez MD ? Specimen: ?Rectal Biopsy ? 11/24/2024 9:53 AM ENGINE MONITOR [facility] Final Diagnosis Rectum, biopsy: -- Mild to moderate chronic active colitis -- No dysplasia 11/24/2024 9:53 AM ENGINE MONITOR [facility] Clinical History Lower endoscopy: Clinical history: Surveillance: Ulcerative let cited colitis of 8 or more years duration Endoscopic impression: The examined colon is normal. Localized moderate inflammation in the rectum secondary to colitis. 11/24/2024 9:53 AM ENGINE MONITOR [facility] Gross Description The specimen is received in a formalin-filled container labeled with the patient's name Dear, Claudia Baird. and rectal biopsy and consists of two cadet tissue fragments (0.2 cm to 0.4 cm in greatest dimension). Entirely submitted in cassette A1. AMA/eh 11/24/2024 9:53 AM [facility] Microscopic Description Microscopic examination substantiates the above cited diagnosis. 11/24/2024 9:53 AM [facility] Disclaimer All histochemical and/or immunohistochemical results are interpreted with controls that demonstrate appropriate staining reactions before reporting results. Note on use of immunocytochemistry reagents: This test was developed and its performance characteristic determined by [facility], Department of Laboratory Medicine. It has not been cleared or approved by the U.S. Food and Drug Administration (FDA). The FDA has determined that such clearance or approval is not necessary. The test is used for clinical purpose. It should not be regarded as investigational or for research. This laboratory is certified to perform high complexity testing. The performance characteristics of the IHC/JALEEL assays have been validated on formalin-fixed paraffin embedded tissues only. The assays have not been validated on decalcified tissues. Results should be interpreted with caution. 11/24/2024 9:53 AM [facility] Embedded Images 11/24/2024 9:53 AM [facility] Pathology/Cytolo gy RECTAL BIOPSY SPECIMEN / Unknown 11/20/2024 2:18 PM ENGINE MONITOR 11/21/2024 6:46 AM ENGINE MONITOR Ronni Dave MD LAB - PATHOLOGY/CY TOLOGY ORDERABLES Performing Organization Address [facility]/State/ZIP Co de Phone Number [facility] [address] [place] [address] * Colonscopy Diagnostic (11/20/2024 1:31 PM ENGINE MONITOR) Report Endoscopy POC _ Patient Name: Claudia Dan ? Procedure Date: 11/20/2024 1:31 PM ? Date of : 1990 ? Admit Type: Outpatient Age: 34 ? Gender: Female Attending MD: Ronni Dave MD, [id number] _ Procedure: ? Colonoscopy Indications: ? High risk colon cancer surveillance: Ulcerative left ? sided colitis of 8 (or more) years duration Providers: ? Ronni Dave MD (Doctor) Patient Profile: ? 34yo female with known UC here for colonoscopy for ? disease activity assessment Referring : ?Tasneem Mabry (Referring ) Medicines: ? Monitored Anesthesia Care Complications: ? No immediate complications. _ Estimated Blood Loss: ? Estimated blood loss: none. Procedure: ? Pre-Anesthesia Assessment: ? - Prior to the procedure, a History and Physical was ? performed, and patient medications, allergies and ? sensitivities were reviewed. The patient's tolerance ? of previous anesthesia was reviewed. ? - The risks and benefits of the procedure and the ? sedation options and risks were discussed with the ? patient. All questions were answered and informed ? consent was obtained. ? - Prior Anticoagulants: The patient has taken no ? anticoagulant or antiplatelet agents. ? - Prior Aspirin/ NSAID therapy: The patient has taken ? no aspirin or NSAID medications. ? - ASA Grade Assessment: II - A patient with mild ? systemic disease. ? After I obtained informed consent, the scope was ? passed under direct vision. Throughout the procedure, ? the patient's blood pressure, pulse, and oxygen ? saturations were monitored continuously. The ? Colonoscope was introduced through the anus and ? advanced to the terminal ileum. The colonoscopy was ? performed without difficulty. The patient tolerated ? the procedure well. The quality of the bowel ? preparation was evaluated using the BBPS ([place] Bowel ? Preparation Scale) with scores of: Right Colon = 3, ? Transverse Colon = 3 and Left Colon = 3 (entire mucosa ? seen well with no residual staining, small fragments ? of stool or opaque liquid). The total BBPS score ? equals 9. The terminal ileum, ileocecal valve, ? appendiceal orifice, and rectum were photographed. ? Findings: ? The perianal and digital rectal examinations were normal. ? Localized moderate inflammation characterized by erosions, erythema, ? friability and granularity was found in the rectum. Biopsies were taken ? with a cold forceps for histology. ? The entire examined colon appeared normal otherwise. ? The retroflexed view of the distal rectum and anal verge was normal and ? showed no anal or rectal abnormalities. _ ? Impression: ?- Localized moderate inflammation was found in the ? rectum secondary to colitis. Biopsied. ? - The entire examined colon is normal. ? - The distal rectum and anal verge are normal on ? retroflexion view. Recommendation: ?- Discharge patient to home. ? - Patient has a contact number available for ? emergencies. The signs and symptoms of potential ? delayed complications were discussed with the patient. ? Return to normal activities tomorrow. Written ? discharge instructions were provided to the patient. ? - Resume previous diet. ? - Await pathology results. ? - Repeat colonoscopy date to be determined after ? pending pathology results are reviewed for ? surveillance. ? - Likely need to start biologic treatment. ? Procedure Code(s): ? --- Professional --- ? 13164, Colonoscopy, flexible; with biopsy, single or multiple ? --- Technical --- ? 38620, Colonoscopy, flexible; with biopsy, single or multiple Diagnosis Code(s): ? --- Professional --- ? K51.50, Left sided colitis without complications ? K52.9, Noninfective gastroenteritis and colitis, unspecified ? --- Technical --- ? K51.50, Left sided colitis without complications ? K52.9, Noninfective gastroenteritis and colitis, unspecified CPT copyright 2020 [employer]. All rights reserved. The codes documented in this report are preliminary and upon alum operator review may be revised to meet current compliance requirements. __ Ronni Dave MD 11/20/2024 2:20:56 PM Number of Addenda: 0 Note Initiated On: 11/20/2024 1:31 PM [facility] 11/20/2024 1:31 PM ENGINE MONITOR Narrative Procedure Note Ronni Dave MD - 11/20/2024 2:21 PM CST colonoscopy done for UC. Inflammation noted in the rectum s/p biopsy.f/u path results. Likely will need to start biologic treatments. Thelma Ibarra PASTEURIZING SUPERVISOR-DRAGLINE OPERATOR GI PROCEDURE O RDERABLES Performing Organization Address City/[facility]/ZIP Co de Phone Number [facility] [place] [address] * HCG URINE QUALITATIVE - POCT (IP) INTERFACED (11/20/2024 1:26 PM ENGINE MONITOR) Pathologist [facility] HCG Qual Urine Negative Negative 11/20/2024 1:31 PM ENGINE MONITOR [facility] Urine URINE / Unknown 11/20/2024 1 :26 PM ENGINE MONITOR 11/20/2024 1:31 PM ENGINE MONITOR Ronni Dave MD LAB - POINT OF CAR E ORDERABLES Performing Organization Address [facility] Co de Phone Number [facility] [address] [place] [address] * QUANTIFERON-TB GOLD PLUS 1-TUBE (11/17/2024 1:56 PM ENGINE MONITOR) Pathologist [facility] QuantiFERON TB Gold Plus NEGATIVE NEGATIVE [facility] Comment: Negative test result. M. tuberculosis complex infection unlikely. NIL 0.01 IU/mL [facility] MITOGEN MINUS NIL RESULT 9.15 IU/mL [facility] TB1-NIL 0.00 IU/mL [facility] TB2-NIL 0.00 IU/mL [facility] Comment: The Nil tube value reflects the background interferon gamma immune response of the patient's blood sample. This value has been subtracted from the patient's displayed TB and Mitogen results. Lower than expected results with the Mitogen tube prevent false-negative Quantiferon readings by detecting a patient with a potential immune suppressive condition and/or suboptimal pre-analytical specimen handling. The TB1 Antigen tube is coated with the M. tuberculosis-specific antigens designed to elicit responses from TB antigen primed CD4+ helper T-lymphocytes. The TB2 Antigen tube is coated with the M. tuberculosis-specific antigens designed to elicit responses from TB antigen primed CD4+ helper and CD8+ cytotoxic T-lymphocytes. For additional information, please refer to https://education.Student Film Channel.Mobile Accord/faq/AAD068 (This link is being provided for informational/ educational purposes only.) Test Performed at: [facility] [address] ??[phone] BELKYS WILKERSON MD 11/17/2024 1:56 PM ENGINE MONITOR 11/17/2024 2:05 PM ENGINE MONITOR Thelma Sara Ibarra PASTEURIZING SUPERVISOR-DRAGLINE OPERATOR LAB - CHEMISTR Y ORDERABLES [employer] [address] [place] [address] * (ABNORMAL) THIOPURINE+METABOLITE PANEL (11/17/2024 1:56 PM ENGINE MONITOR) 6-Thioguanine <50(L) 235 - 400 pmol/8x10( 8)RBC [facility] Comment: (Note) This test was developed and its analytical performance characteristics have been determined by [employer] [facility]. It has not been cleared or approved by the FDA. This assay has been validated pursuant to the CLIA regulations and is used for clinical purposes. 6-Methylmercaptop urine <500 <5700 pmol/8x10( 8)RBC [facility] Comment: (Note) These results are useful in assessing a patient's metabolism of azathioprine (AZA) or 6-mercaptopurine (6-MP). A 6-thioguanine (6-TG) level greater than 235 pmol/8x10(8) RBC has been associated with remission and very high levels have been associated with leucopenia. 6-methylmercaptopurine (6-MMP) levels greater than 5700 pmol/8x10(8) RBC may be associated with hepatoxicity. This test was developed and its analytical performance characteristics have been determined by [employer] [facility]. It has not been cleared or approved by the FDA. This assay has been validated pursuant to the CLIA regulations and is used for clinical purposes. [facility] [address] [facility] [facility] [address] [facility] [address] Anita Kang MD, PhD Test Performed at: [facility] [address] [facility] [address] [place], [place] ??[phone] ANITA KANG MD,PHD 11/17/2024 1:56 PM ENGINE MONITOR 11/17/2024 2:05 PM ENGINE MONITOR Thelma Sara Ibarra PASTEURIZING SUPERVISOR-DRAGLINE OPERATOR LAB - THERAPEU TIC DRUG MONITORING ORDERABLES Performing Organization Address City/State/[facility] Co de Phone Number [facility] [address] [place] [address] * (ABNORMAL) HEPATITIS PANEL (11/17/2024 1:56 PM ENGINE MONITOR) Hepatitis A Virus Antibody Total REACTIVE(A ) NON-REACT [facility] Comment: For additional information, please refer to http://4tiitoo/faq/FQT238 (This link is being provided for informational/ educational purposes only.) Hepatitis B Virus Surface Antibody REACTIVE(A ) NON-REACT [facility] Hepatitis B Virus Surface Antigen NON-REACTI VE NON-REACT [facility] Comment: For additional information, please refer to http://4tiitoo/faq/OYC980 (This link is being provided for informational/ educational purposes only.) Hepatitis B Core Virus Antibody Total NON-REACTI VE NON-REACT [facility] Comment: For additional information, please refer to http://4tiitoo/faq/RQW548 (This link is being provided for informational/ educational purposes only.) Hepatitis C Antibody NON-REACTI VE NON-REACT [facility] Comment: HCV antibody was non-reactive. There is no laboratory evidence of HCV infection. In most cases, no further action is required. However, if recent HCV exposure is suspected, a test for HCV RNA (test code 02511) is suggested. For additional information please refer to http://4tiitoo/faq/WMV65b8 (This link is being provided for informational/ educational purposes only.) Test Performed at: [facility] [id number] [place] [address] ??[phone] BELKYS WILKERSON MD Blood BLOOD SPECIMEN / Unknown 11/17/2024 1:56 PM ENGINE MONITOR 11/17/2024 2:05 PM ENGINE MONITOR Thelma Ibarra APRN-DRAGLINE OPERATOR LAB - CHEMISTR Y ORDERABLES Performing Organization Address [facility] [place] [address] * C-REACTIVE PROTEIN (CRP) (11/17/2024 1:56 PM ENGINE MONITOR) [facility] C-Reactive Protein <3.0 <8.0 mg/L [facility] Comment: Test Performed at: [facility] [address] [place] [address] ??[phone] BELKYS WILKERSON MD Blood BLOOD SPECIMEN / Unknown 11/17/2024 1:56 PM ENGINE MONITOR 11/17/2024 2:05 PM ENGINE MONITOR Thelma Ibarra APRN-DRAGLINE OPERATOR LAB - CHEMISTR Y ORDERABLES Performing Organization Address [facility] [place] [address] * (ABNORMAL) CBC WITH DIFFERENTIAL (11/17/2024 1:56 PM ENGINE MONITOR) Pathologist [facility] White Blood Cell Count 6.9 3.8 - 10.8 Thousand/ uL [facility] RBC 4.87 3.80 - 5.10 Million/u L [facility] Hemoglobin 13.5 11.7 - 15.5 g/dL [facility] Hematocrit 42.3 35.0 - 45.0 % [facility] MCV 86.9 80.0 - 100.0 fL [facility] MCH 27.7 27.0 - 33.0 pg [facility] MCHC 31.9(L) 32.0 - 36.0 g/dL [facility] Comment: For adults, a slight decrease in the calculated MCHC value (in the range of 30 to 32 g/dL) is most likely not clinically significant; however, it should be interpreted with caution in correlation with other red cell parameters and the patient's clinical condition. RDW 12.9 11.0 - 15.0 % [facility] Platelet Count 252 140 - 400 Thousand/ uL [facility] MPV 11.0 7.5 - 12.5 fL [facility] Neutrophil Absolute 4526 1500 - 7800 cells/uL [facility] Lymphocytes Absolute 1808 850 - 3900 cells/uL [facility] Absolute Monocytes 290 200 - 950 cells/uL [facility] Eosinophils Absolute 248 15 - 500 cells/uL [facility] Basophils Absolute 28 0 - 200 cells/uL [facility] Granulocytes % 65.6 % [facility] Lymphocytes % 26.2 % [facility] Monocytes % 4.2 % [facility] Eosinophils % 3.6 % [facility] Basophils % 0.4 % [facility] Comment: Test Performed at: [facility] ??[phone] BELKYS WILKERSON MD Blood BLOOD SPECIMEN / Unknown 11/17/2024 1:56 PM ENGINE MONITOR 11/17/2024 2:05 PM ENGINE MONITOR Thelma Ibarra PASTEURIZING SUPERVISOR-DRAGLINE OPERATOR LAB - HEMATOLO GY ORDERABLES [address] [address] * COMPREHENSIVE METABOLIC PANEL (11/17/2024 1:56 PM ENGINE MONITOR) Glucose 80 65 - 99 mg/dL [facility] Comment: ? Fasting reference interval BUN 14 7 - 25 mg/dL [facility] Creatinine 0.84 0.50 - 0.97 mg/dL [facility] eGFR by Cystatin C 94 > OR = 60 mL/min/1. 73m2 [facility] BUN/Creatinine Ratio SEE NOTE: (calc) [facility] Comment: ?? Not Reported: BUN and Creatinine are within ?? reference range. ? Sodium 139 135 - 146 mmol/L [facility] Potassium 3.8 3.5 - 5.3 mmol/L [facility] Chloride 106 98 - 110 mmol/L [facility] CO2 26 20 - 32 mmol/L [facility] Calcium 8.9 8.6 - 10.2 mg/dL [facility] Protein Total 7.1 6.1 - 8.1 g/dL [facility] Albumin 4.0 3.6 - 5.1 g/dL [facility] Globulin Total 3.1 1.9 - 3.7 g/dL (calc) [facility] Albumin/Globulin Ratio 1.3 1.0 - 2.5 (calc) [facility] Bilirubin Total 0.7 0.2 - 1.2 mg/dL [facility] Alkaline Phosphatase 51 31 - 125 U/L [facility] AST 18 10 - 30 U/L [facility] ALT 27 6 - 29 U/L [facility] Comment: Test Performed at: [facility] ??[phone] BELKYS WILKERSON MD Blood BLOOD SPECIMEN / Unknown 11/17/2024 1:56 PM ENGINE MONITOR 11/17/2024 2:05 PM ENGINE MONITOR Thelma Ibarra PASTEURIZING SUPERVISOR-DRAGLINE OPERATOR LAB - CHEMISTR Y ORDERABLES [address] [address] * LAB RESULTS ORDER (11/17/2024) Only the most recent of3 resultswithin the time period is included. 11/17/2024 Narrative 11/17/2024 Ordered by an unspecified provider. Scanned Document LAB - THERAPEUTIC DR XAVIER MONITORING ORDERABLES from Last 3 Months Administered Medications Care Teams Meter Tester Relationship Specialty Start Date End Date Tasneem Mabry PA-C [address] [place] [phone] PCP - General Physician Solderer Torch 08/07/22
--- OUTSIDE RECORDS SUMMARY | 2024-11-27 11:26 | XMS_ITS | Clinical Summary ---
Author Organization [facility] Address [address] [place] [address] Care Team Providers Care Rollway Man Name Role Phone Tasneem Mabry PA-C Primary Care Provider [phone] Source Comments [facility],non-owned Affiliates and Associated Physician Practices is amultiple site organization consisting of ambulatory clinics and hospital sitesin [place], [place], [place] and [place]. This disclosure is being madepursuant to the Care Everywhere program and may not contain all information available regarding this patient. Last updated 18.[facility] Allergies Active Allergy Reactions Criticality Noted Date [...] Her labs are stable. Await further recommendations. Encounters Date Type Department Care Team Description 11/24/2024 Travel 11/20/2024 2:00 PM CIVIL CAD DESIGNER - 11/20/2024 2:30 PM CIVIL CAD DESIGNER Surgery [facility], later [facility] [address] [place] [address] Ronni Dave MD COLONOSCOPY DIAGNOSTIC 11/20/2024 1:56 PM CIVIL CAD DESIGNER Anesthesia Event [facility] [address] [place] [address] Serena Li DO Han, Jason A, MD 11/20/2024 1:03 PM CIVIL CAD DESIGNER - 11/20/2024 3:10 PM CIVIL CAD DESIGNER Hospital Encounter [facility] [address] [place] [address] Ronni Dave MD Surgery General Discharge Disposition: Home or Self Care 11/20/2024 Travel 11/17/2024 Orders Only [facility] [place] [address] Joleen Prater, [address] [address] Thelma Ibarra, LEAVE MANAGER-ASSET SPECIALIST 11/06/2024 9:00 AM CIVIL CAD DESIGNER Office Visit [facility] [place] [id number], [facility] [address] [place] [address] Ronni Dave MD Ulcerative colitis with complication, unspecified location (HCC) (Primary Dx); Loose stools 11/06/2024 Travel 09/24/2024 Travel from Last 3 Months Social History Tobacco Use Types Packs/Day Years [...] Comments Blood Pressure 91/53 11/20/2024 2:40 PM CIVIL CAD DESIGNER Pulse 91 11/20/2024 2:40 PM CIVIL CAD DESIGNER Temperature 36.2 ??C (97.2 ??F) 11/20/2024 2:25 PM CS T Respiratory Rate 13 11/20/2024 2:40 PM CIVIL CAD DESIGNER Oxygen Saturation 100% 11/20/2024 2:40 PM CIVIL CAD DESIGNER Inhaled Oxygen Concentration - - Weight 69.8 kg (153 lb 12.8 oz) 11/06/2024 8:59 AM CIVIL CAD DESIGNER Height 167.6 cm (5' 6 ) 05/31/2023 8:32 AM CDT Body Mass Index 24.82 05/31/2023 8:32 AM CDT Plan of Treatment Upcoming Encounters Date Type Department Care Team (Late st Contact Info) Description 02/26/2025 8:40 AM CDT Office Visit [facility] - [address] Joleen Prater, [facility] [address] [place] [address] [place] [address] [facility] [address] [place] [address] Health Maintenance Due Date Last Done Comments PAP SMEAR 1991 HIV SCREENING 2006 DTAP/TDAP/TD VACCINES (1 - Tdap) 2010 HEPATITIS B VACCINE (1 of 3 - 19+ 3-dose series) 2010 COVID-19 VACCINE ( - 2023-2 5 season) 2024 INFLUENZA VACCINE (#1) 2024 DEPRESSION SCREENING 11/05/2024 ZOSTER VACCINE (1 of 2) 2041 HEPATITIS C SCREENING Completed 11/17/2024 HIB VACCINE Aged Out No longer eligi ble based on patient's age to complete this topic HPV VACCINE Aged Out No longer eligi ble based on patient's age to complete this topic MENINGOCOCCAL (Group B) VACCINE Aged Out No longer eligible based on patient's age to complete this topic MENINGOCOCCAL VACCINE Aged Out No jordana rudy eligible based on patient's age to complete this topic PNEUMOCOCCAL VACCINE Aged Out No long er eligible based on patient's age to complete this topic Procedures Procedure Name Priority Date/Time Associated Diagnosis Comments HCG URINE QUAL POCT NOTIFICATION STAT 11/20/2024 2:30 PM CIVIL CAD DESIGNER Pre-op exam PATHOLOGY TISSUE EXAM (STL) Routine 11/20/2024 2:18 PM CIVIL CAD DESIGNER Diagnosis deferred GA COLONOSCOPY, DIAGNOSTIC 11/20/2024 2:00 PM CIVIL CAD DESIGNER ENDOSCOPY, COLON, DIAGNOSTIC Routine 11/20/2024 1:31 PM CIVIL CAD DESIGNER Ulcerative colitis with complication, unspecified location (HCC) HCG URINE QUALITATIVE - POCT (IP) INTERFACED Routine 11/20/2024 1:26 PM CIVIL CAD DESIGNER THIOPURINE+METABOLITE PANEL 11/17/2024 1:56 PM CIVIL CAD DESIGNER QUANTIFERON-TB GOLD PLUS 1-TUBE 11/17/2024 1:56 PM CIVIL CAD DESIGNER HEPATITIS PANEL Routine 11/17/2024 1:56 PM CIVIL CAD DESIGNER Ulcerative colitis with complication, unspecified location (HCC) C-REACTIVE PROTEIN Routine 11/17/2024 1: 56 PM CIVIL CAD DESIGNER Ulcerative colitis with complication, unspecified location (HCC) Loose stools COMPREHENSIVE METABOLIC PANEL Routine 11/17/2024 1:56 PM CIVIL CAD DESIGNER Ulcerative colitis with complication, unspecified location (HCC) CBC W AUTO DIFFERENTIAL Routine 11/17/2024 1:56 PM CIVIL CAD DESIGNER Ulcerative colitis with complication, unspecified location (HCC) LAB RESULTS ORDER 11/17/2024 LAB RESULTS ORDER 11/17/2024 LAB RESULTS ORDER 11/17/2024 from Last 3 Months Results * HCG URINE QUAL POCT NOTIFICATION (11/20/2024 2:30 PM CIVIL CAD DESIGNER) Comment Notification Label Only - See Separate Report 11/20/2024 2:30 PM CIVIL CAD DESIGNER [facility] Urine URINE / Unknown 1:15 PM CIVIL CAD DESIGNER Ronni Dave MD LAB - URINALYSIS O RDERABLES [facility] [address] [place] [address] * PATHOLOGY TISSUE EXAM (STL) (11/20/2024 2:18 PM CIVIL CAD DESIGNER) Case Report Surgical Pathology Report ? Case: [id number] ? Authorizing Provider: ??Ronni Dave MD ?Collected: ? 11/20/2024 02:18 PM ? Ordering Location: ? [facility] Received: ?11/21/2024 06:46 AM ? - Endoscopy Services ? Pathologist: ? Risa Vazquez MD ? Specimen: ?Rectal Biopsy ? 11/24/2024 9:53 AM CIVIL CAD DESIGNER [facility] Final Diagnosis Rectum, biopsy: -- Mild to moderate chronic active colitis -- No dysplasia 11/24/2024 9:53 AM CIVIL CAD DESIGNER [facility] Clinical History Lower endoscopy: Clinical history: Surveillance: Ulcerative let cited colitis of 8 or more years duration Endoscopic impression: The examined colon is normal. Localized moderate inflammation in the rectum secondary to colitis. 11/24/2024 9:53 AM [facility] Gross Description The specimen is received in a formalin-filled container labeled with the patient's name Dear, Claudia Sinha and rectal biopsy and consists of two cadet tissue fragments (0.2 cm to 0.4 cm in greatest dimension). Entirely submitted in cassette A1. AMA/ 11/24/2024 9:53 AM [facility] Microscopic Description Microscopic examination substantiates the above cited diagnosis. 11/24/2024 9:53 AM [facility] Disclaimer All histochemical and/or immunohistochemical results are interpreted with controls that demonstrate appropriate staining reactions before reporting results. Note on use of immunocytochemistry reagents: This test was developed and its performance characteristic determined by [facility], Department of Laboratory Medicine. It has not [...] be interpreted with caution. 11/24/2024 9:53 AM [facility] Embedded Images 11/24/2024 9:53 AM [facility] Pathology/Cytolo gy RECTAL BIOPSY SPECIMEN / Unknown 11/20/2024 2:18 PM CIVIL CAD DESIGNER 11/21/2024 6:46 AM CIVIL CAD DESIGNER Ronni Dave MD LAB - PATHOLOGY/REGGIE GALVIN ORDERABLES [facility] [address] [place] [address] * Colonscopy Diagnostic (11/20/2024 1:31 PM CIVIL CAD DESIGNER) Report Endoscopy POC _ Patient Name: Claudia Dan ? Procedure Date: 11/20/2024 1:31 PM ? Date of : 1990 ? Admit Type: Outpatient Age: 34 ? Gender: Female Attending MD: Ronni Dave MD, [id number] _ Procedure: ? Colonoscopy Indications: ? High risk colon cancer surveillance: Ulcerative left ? sided colitis of 8 (or more) years duration Providers: ? Ronni Dave MD (Doctor) Patient Profile: ? 34yo female with known UC here for colonoscopy for ? disease activity assessment Referring MD: ?Tasneem Mabry (Referring MD) Medicines: ? Monitored Anesthesia Care Complications: ? [...] ? preparation was evaluated using the BBPS (Marienthal Bowel ? Preparation Scale) with scores of: [...] Procedure Code(s): ? --- Professional --- ? 00524, Colonoscopy, flexible; with biopsy, single or multiple ? --- Technical --- ? 73685, Colonoscopy, flexible; with biopsy, single or multiple Diagnosis Code(s): ? --- Professional --- ? K51.50, Left sided colitis without complications ? K52.9, Noninfective gastroenteritis and colitis, unspecified ? --- Technical --- ? K51.50, Left sided colitis without complications ? K52.9, Noninfective gastroenteritis and colitis, unspecified CPT copyright 2020 [employer]. All rights reserved. The codes documented in this report are preliminary and upon bead forming machine operator review may be revised to meet current compliance requirements. __ Ronni Dave MD 11/20/2024 2:20:56 PM Number of Addenda: 0 Note Initiated On: 11/20/2024 1:31 PM [facility] 11/20/2024 1:31 PM CIVIL CAD DESIGNER Narrative Procedure Note Ronni Dave MD - 11/20/2024 2:21 PM CST colonoscopy done for UC. Inflammation noted in the rectum s/p biopsy.f/u path results. Likely will need to start biologic treatments. Thelma Ibarra LEAVE MANAGER-ASSET SPECIALIST GI PROCEDURE O RDERABLES [facility] [place] [address] * HCG URINE QUALITATIVE - POCT (IP) INTERFACED (11/20/2024 1:26 PM CIVIL CAD DESIGNER) HCG Qual Urine Negative Negative 11/20/2024 1:31 PM CIVIL CAD DESIGNER [facility] Urine URINE / Unknown 11/20/2024 1 :26 PM CIVIL CAD DESIGNER 11/20/2024 1:31 PM CIVIL CAD DESIGNER Ronni Dave MD LAB - POINT OF CAR E ORDERABLES Performing Organization Address City/[facility]/ZIP Co de Phone Number [facility] [address] [place] [address] * QUANTIFERON-TB GOLD PLUS 1-TUBE (11/17/2024 1:56 PM CIVIL CAD DESIGNER) [facility] QuantiFERON TB Gold Plus NEGATIVE NEGATIVE [facility] [...] T-lymphocytes. For additional information, please refer to https://education.99Bill/faq/PLJ534 (This link is being provided for informational/ educational purposes only.) Test Performed at: [facility] [address] [place], [place] ??[phone] BELKYS WILKERSON MD 11/17/2024 1:56 PM CIVIL CAD DESIGNER 11/17/2024 2:05 PM CIVIL CAD DESIGNER Thelma Ibarra LEAVE MANAGER-ASSET SPECIALIST LAB - CHEMISTR Y ORDERABLES Performing Organization Address City/[facility]/ZIP Co de Phone Number [facility] [address] [place] [address] * (ABNORMAL) THIOPURINE+METABOLITE PANEL (11/17/2024 1:56 PM CIVIL CAD DESIGNER) [facility] 6-Thioguanine <50(L) 235 - 400 pmol/8x10( 8)RBC [facility] Comment: (Note) This test was developed and its analytical performance characteristics have been determined by [employer]. It has not been cleared or approved [...] analytical performance characteristics have been determined by [employer]. It has not been cleared or approved by the FDA. This assay has been validated pursuant to the CLIA regulations and is used for clinical purposes. [facility] [address] [address],[address] [place] [address] Anita Kang MD, PhD Test Performed at: [facility] [address] [address] [address] [place], [place] ??[phone] ANITA KANG MD,PHD 11/17/2024 1:56 PM CIVIL CAD DESIGNER 11/17/2024 2:05 PM CIVIL CAD DESIGNER Thelma Ibarra APRN-ASSET SPECIALIST LAB - THERAPEU TIC DRUG MONITORING ORDERABLES [facility] [address] [place] [address] * (ABNORMAL) HEPATITIS PANEL (11/17/2024 1:56 PM CIVIL CAD DESIGNER) Hepatitis A Virus Antibody Total REACTIVE(A ) NON-REACT OLIVIER [facility] Comment: For additional information, please refer to http://education.[employer]/faq/MVE838 (This link is being provided for informational/ educational purposes only.) Hepatitis B Virus Surface Antibody REACTIVE(A ) NON-REACT OLIVIER [facility] Hepatitis B Virus Surface Antigen NON-REACTI VE NON-REACT OLIVIER [facility] Comment: For additional information, please refer to http://[employer].99Bill/faq/TLR573 (This link is being provided for informational/ educational purposes only.) Hepatitis B Core Virus Antibody Total NON-REACTI VE NON-REACT OLIVIER [facility] Comment: For additional information, please refer to http://[employer].99Bill/faq/JHE080 (This link is being provided for informational/ educational purposes only.) Hepatitis C Antibody NON-REACTI VE NON-REACT OLIVIER [facility] Comment: HCV antibody was non-reactive. There is no laboratory evidence of HCV infection. In most cases, no further action is required. However, if recent HCV exposure is suspected, a test for HCV RNA (test code 30230) is suggested. For additional information please refer to http://[employer].99Bill/faq/ZSU76e8 (This link is being provided for informational/ educational purposes only.) Test Performed at: [employer] [place], [place] ??[phone] BELKYS WILKERSON MD Blood BLOOD SPECIMEN / Unknown 11/17/2024 1:56 PM CIVIL CAD DESIGNER 11/17/2024 2:05 PM CIVIL CAD DESIGNER Thelma Ibarra APRN-ASSET SPECIALIST LAB - CHEMISTR Y ORDERABLES Performing Organization Address [facility]/State/[facility] Co de Phone Number [facility] [address] [place] [address] * C-REACTIVE PROTEIN (CRP) (11/17/2024 1:56 PM CIVIL CAD DESIGNER) C-Reactive Protein <3.0 <8.0 mg/L [facility] Comment: Test Performed at: [facility] [address] [place], [place] ??[phone] BELKYS WILKERSON MD Blood BLOOD SPECIMEN / Unknown 11/17/2024 1:56 PM CIVIL CAD DESIGNER 11/17/2024 2:05 PM CIVIL CAD DESIGNER Thelma Ibarra APRN-ASSET SPECIALIST LAB - CHEMISTR Y ORDERABLES [facility] [address] [place] [address] * (ABNORMAL) CBC WITH DIFFERENTIAL (11/17/2024 1:56 PM CIVIL CAD DESIGNER) [facility] White Blood Cell Count 6.9 3.8 - [...] 0.4 % [facility] Comment: Test Performed at: [facility] ??[phone] BELKYS WILKERSON MD Blood BLOOD SPECIMEN / Unknown 11/17/2024 1:56 PM CIVIL CAD DESIGNER 11/17/2024 2:05 PM CIVIL CAD DESIGNER Thelma Ibarra LEAVE MANAGER-ASSET SPECIALIST LAB - HEMATOLO GY ORDERABLES [facility] [address] [place] [address] * COMPREHENSIVE METABOLIC PANEL (11/17/2024 1:56 PM CIVIL CAD DESIGNER) [facility] Glucose 80 65 - 99 mg/dL [facility] Comment: ? Fasting reference interval BUN 14 7 - 25 mg/dL [facility] Creatinine 0.84 0.50 - 0.97 mg/dL [facility] eGFR by Cystatin C 94 > OR = 60 mL/min/1. 73m2 [facility] BUN/Creatinine Ratio SEE NOTE: 6 - (calc) [facility] Comment: ?? Not Reported: BUN [...] 29 U/L [facility] Comment: Test Performed at: [facility] ??[phone] BELKYS WILKERSON MD Blood BLOOD SPECIMEN / Unknown 11/17/2024 1:56 PM CIVIL CAD DESIGNER 11/17/2024 2:05 PM CIVIL CAD DESIGNER Thelma Ibarra APRN-ASSET SPECIALIST LAB - CHEMISTR Y ORDERABLES [address] [address] * LAB RESULTS ORDER (11/17/2024) Only the most recent of3 resultswithin the time period is included. 11/17/2024 Narrative 11/17/2024 Ordered by an unspecified provider. Scanned Document LAB - THERAPEUTIC DR MORENITA MONITORING ORDERABLES from Last 3 Months Care Teams Rollway Man Relationship Specialty Start Date End Date Tasneem Mabry PAIsidraC [address] [place] [phone] PCP - General Physician Didactic Program In Dietetics Director 08/07/22
--- OUTSIDE RECORDS SUMMARY | 2024-11-27 11:26 | XMS_ITS | Clinical Summary ---
Author Organization [facility] Address [address] [place] [address]. [place], [place] [address] [place] [address] Care Team Providers Care Radio Frequency Engineer Name Role Phone Tasneem Mabry Primary Care Provider [phone] Allergies Active Allergy Reactions Criticality Noted Date Comments Ketorolac Dizziness,Headache,Chest pressure Medium Medications escitalopram 5 MG tablet Take 5 mg by mouth daily. 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 Gender Identity Not on file Sexual Orientation Not on file Last Filed Vital Signs Vital Sign Reading Time Taken Comments Blood Pressure 115/85 02/25/2022 12:09 AM CDT Pulse 75 02/25/2022 12:09 AM CDT Temperature 36.8 ??C (98.2 ??F) 02/25/2022 12:09 AM C DT Respiratory Rate 18 02/25/2022 12:09 AM CDT Oxygen Saturation 98% 02/25/2022 12:09 AM CDT Inhaled Oxygen Concentration - - Weight 61.7 kg (136 lb) 02/25/2022 12:09 AM CDT Height 165.1 cm (5' 5 ) 02/25/2022 12:09 AM CDT Body Mass Index 22.63 02/25/2022 12:09 AM CDT Plan of Treatment Health Maintenance Due Date Last Done Comments Cervical Cancer Screening Pap Smear (Age 30 to 64) Every 3 Years 1991 Annual Physical 1994 Hepatitis B Vaccines (1 of 3 - 19+ 3-dose series) 2010 Cervical Cancer Screening Pap with HPV Testing (Age 30 to 64) Every 5 Years 2021 Cervical Cancer Screening with HPV 2021 COVID-19 Vaccine ( season) 2024 Influenza Adult (#1) 2024 DTaP, Tdap and Td Vaccines (2 - Td or Tdap) 08/05/2025 08/05/2015, 07/03/1996, 04/27/1994, Additional history exists Hepatitis C Completed 03/08/2021 HPV Vaccines Aged Out No longer eligi ble based on patient's age to complete this topic Meningococcal B Vaccine Aged Out No l onger eligible based on patient's age to complete this topic Meningococcal Vaccine Aged Out No jordana rudy eligible based on patient's age to complete this topic Pneumococcal Vaccine: Pediatrics (0 to 5 Years) and At-Risk Patients (6 to 64 Years) Aged Out No longer eligible based on patient's age to complete this topic RSV Immunizations Under 20 Months Aged Out No longer eligible based on patient's age to complete this topic Procedures Procedure Name Priority Date/Time Associated Diagnosis Comments HC EIA QL HEPATITIS ABC B AG Routine 03/08/2021 10:04 AM CDT from Last 3 Months or Most Recently Relevant to Health Maintenance Results * HEPATITIS A,B,& C (03/08/2021 10:04 AM CDT) HEPATITIS B SURFACE AG NON-REACTIVE NON-REACT OLIVIER 03/08/2021 11:27 AM CDT [facility] HEP B CORE TOTAL AB NON-REACTIVE NON-REACT OLIVIER 03/08/2021 11:34 AM CDT [facility] HEP B SURFACE AB REACTIVE 03/08/2021 11:27 AM CDT [facility] HAV IGM NON-REACTIVE NON-REACT OLIVIER 03/08/2021 11:35 AM CDT [facility] HEPATITIS C AB NON-REACTIVE NON-REACT OLIVIER 03/08/2021 11:33 AM CDT [facility] 03/08/2021 10:0 4 AM CDT us Damion Aguilera MD LABORATORY Final Resul t [facility] [address] [place] [address], from Last 3 Months or Most Recently Relevant to Health Maintenance Insurance [employer] Care Teams Radio Frequency Engineer Relationship Specialty Start Date End Date Tasneem Mabry PA [address] [place] [address] PCP - General PHYSICIAN DENTAL HYGIENE ADMINISTRATIVE ASSISTANT 02/25/22
--- OUTSIDE RECORDS SUMMARY | 2024-11-27 11:26 | XMS_ITS | Encounter Summary ---
Author Organization [facility] Address [address] [place] [address]. 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 No / Unsure 03/08/2021 8:41 AM CDT documented as of this encounter Plan of Treatment Not on file documented as of this encounter Results * PRE-SURGICAL/PRE-PROCEDURE CORONAVIRUS (COVID 19) (03/05/2021 9:39 AM CDT) CORONAVIRUS SARS COV 2 PCR (RESP) NOT DETECTED NOT DETECTED 03/06/2021 4:50 PM CDT [facility] Comment: A Not Detected (negative) test result for this test means that SARS-CoV-2 RNA was not present in the specimen above the limit of detection. A negative result does not rule out the possibility of COVID-19 and should not be used as the sole basis for treatment or patient management decisions. ??If COVID-19 is still suspected, based on exposure history together with other clinical findings, re-testing should be considered in consultation with public health authorities. Laboratory test results should always be considered in the context of clinical observations and epidemiological data in making a final diagnosis and patient management decisions. This patient specimen was tested using an FDA EUA pooling method. Patient specimens with low viral loads may not be detected in sample pools due to the decreased sensitivity of pooled testing. ?? Please review the Fact Sheets and FDA authorized labeling available for health care providers and patients using the following websites: https://www.[employer]/home/Covid-19/HCP/NAAT/fact-sheet2 https://www.[employer]/home/Covid-19/Patients/NAAT/ fact-sheet2 This test has been authorized by the FDA under an Emergency Use Authorization (EUA) for use by authorized laboratories. Due to the current public health emergency, [facility] is receiving a high volume of samples from a wide variety of swabs and media for COVID-19 testing. In order to serve patients during this public health crisis, samples from appropriate clinical sources are being tested. Negative test results derived from specimens received in non-commercially manufactured viral collection and transport media, or in media and sample collection kits not yet authorized by FDA for COVID-19 testing should be cautiously evaluated and the patient potentially subjected to extra precautions such as additional clinical monitoring, including collection of an additional specimen. Methodology: ??Nucleic Acid Amplification Test (NAAT) includes RT-PCR or TMA Additional information about COVID-19 can be found at the [facility] website: www.[employer]/Covid19. Test performed at [facility] [address] [place] [address] ??[phone] Director: JIMMY WASSERMAN DO,MPH FIRST TEST UNKNOWN 03/05/2021 2:49 PM CDT [facility] EMPLOYED IN HEALTHCARE NO 03/05/2021 2:49 PM CDT [facility] SYMPTOMATIC DEFINED BY CDC UNKNOWN 03/05/2021 2:49 PM CDT [facility] DATE OF SYMPTOM ONSET UNKNOWN 03/05/2021 3:14 PM CDT [facility] HOSPITALIZATION STATUS NO 03/05/2021 2:49 PM CDT [facility] PATIENT IN ICU NO 03/05/2021 2:49 PM CDT [facility] RESIDENT OF [facility] NO 03/05/2021 2:49 PM CDT [facility] UNKNOWN 03/05/2021 2:49 PM CDT [facility] PATIENT'S RACE BLACK OR 03/05/2021 2:49 PM CDT [facility] ETHNICITY NONHISPANIC 03/05/2021 2:49 PM CDT [facility] SOURCE (QST) NASOPHARYNGEAL SWAB 03/05/2021 2:49 PM CDT [facility] NASOPHARYNGEAL SWAB / Unknown 03/05/2021 9:39 AM CDT us Damion Aguilera MD MICROBIOLOGY - GENERAL TESSIE MACIAS Final Result [facility] [address] [place] [address], [place] [phone] [address], documented in this encounter Visit Diagnoses Diagnosis Proctitis- Primary Other specified disorder of rectum and anus documented in this encounter Additional Health Concerns Infection Onset Date Last Indicated Resolved Time COVID-19 Rule Out 03/05/2021 03/05/2021 03/06/2021 4:51 PM CDT documented as of this encounter Care Teams Police Worker Relationship Specialty Start Date End Date None, Provider, PCP - General 10/22/19 02/24/22 Tasneem aMbry PA [address] [place] [address] [address] [place] [address] PCP - General PHYSICIAN BRANCH MANAGER 02/25/22 documented as of this encounter
--- OUTSIDE RECORDS SUMMARY | 2024-11-27 11:26 | XMS_ITS | Patient Health Summary ---
Author Organization [facility] Address [address] [facility] [place] [address] Care Team Providers Care Swing Ride Operator Name Role Phone Tasneem Mabry PA-C Primary Care Provider [phone] [facility],non-owned Affiliates and Associated Physician Practices is amultiple site organization consisting of ambulatory clinics and hospital sitesin [place], [place], [place] and [place]. This disclosure is being madepursuant to the Care Everywhere program and may not contain all information available regarding this patient. Last updated 18.[facility] Allergies * Ketorolac(Other,Dizziness,Headache) -Medium Criticality Medications * Be aware that medications may not be up to date on this document. Alwaysverify current medications with the patient. 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 Social History Tobacco Use Types Packs/Day Years [...] Comments Blood Pressure 91/53 11/20/2024 2:40 PM STEPDOWN NURSE Pulse 91 11/20/2024 2:40 PM STEPDOWN NURSE Temperature 36.2 ??C (97.2 ??F) 11/20/2024 2:25 PM CS T Respiratory Rate 13 11/20/2024 2:40 PM STEPDOWN NURSE Oxygen Saturation 100% 11/20/2024 2:40 PM STEPDOWN NURSE Inhaled Oxygen Concentration - - Weight 69.8 kg (153 lb 12.8 oz) 11/06/2024 8:59 AM STEPDOWN NURSE Height 167.6 cm (5' 6 ) 05/31/2023 8:32 AM CDT Body Mass Index 24.82 05/31/2023 8:32 AM CDT Procedures * HCG URINE QUAL POCT NOTIFICATION(Performed 11/20/2024) Performed for Pre-op exam * PATHOLOGY TISSUE EXAM (STL)(Performed 11/20/2024) Performed for Diagnosis deferred * VA COLONOSCOPY, DIAGNOSTIC(Performed 11/20/2024) * ENDOSCOPY, COLON, DIAGNOSTIC(Performed 11/20/2024) Performed for Ulcerative colitis with complication, unspecified location (HCC) * HCG URINE QUALITATIVE - POCT (IP) INTERFACED(Performed 11/20/2024) * THIOPURINE+METABOLITE PANEL(Performed 11/17/2024) * QUANTIFERON-TB GOLD PLUS 1-TUBE(Performed 11/17/2024) * HEPATITIS PANEL(Performed 11/17/2024) Performed for Ulcerative colitis with complication, unspecified location (HCC) * C-REACTIVE PROTEIN(Performed 11/17/2024) Performed for Ulcerative colitis with complication, unspecified location (HCC), Loose stools * COMPREHENSIVE METABOLIC PANEL(Performed 11/17/2024) Performed for Ulcerative colitis with complication, unspecified location (HCC) * CBC W AUTO DIFFERENTIAL(Performed 11/17/2024) Performed for Ulcerative colitis with complication, unspecified location (HCC) * LAB RESULTS ORDER(Performed 11/17/2024) * LAB RESULTS ORDER(Performed 11/17/2024) * LAB RESULTS ORDER(Performed 11/17/2024) * HCG URINE QUAL POCT NOTIFICATION(Performed 08/09/2022) Performed for Preop examination * PATHOLOGY TISSUE EXAM (STL)(Performed 08/09/2022) Performed for Rectal bleeding * VA COLONOSCOPY,BIOPSY(Performed 08/09/2022) Performed for Rectal bleeding * COLONOSCOPY SCREEN(Performed 08/09/2022) Performed for Rectal bleeding * ENDOSCOPY, COLON, DIAGNOSTIC(Performed 08/09/2022) Performed for Rectal bleeding * HCG URINE QUALITATIVE - POCT (IP) INTERFACED(Performed 08/09/2022) * SKIN TEST PPD - POINT OF CARE(Performed 02/10/2018) Performed for Encounter for PPD test Results * HCG URINE QUAL POCT NOTIFICATION (11/20/2024 2:30 PM STEPDOWN NURSE) Only the most recent of2 resultswithin the time period is included. Comment Notification Label Only - See Separate Report 11/20/2024 2:30 PM STEPDOWN NURSE [facility] Urine URINE / Unknown 1:15 PM STEPDOWN NURSE Ronni Dave MD LAB - URINALYSIS O RDERABLES [facility] [address] [place] [address] * PATHOLOGY TISSUE EXAM (STL) (11/20/2024 2:18 PM STEPDOWN NURSE) Only the most recent of2 resultswithin the time period is included. Case Report Surgical Pathology Report ? Case: [id number] ? Authorizing Provider: ??Ronni Dave MD ?Collected: ? 11/20/2024 02:18 PM ? Ordering Location: ? [facility] hospital Received: ?11/21/2024 06:46 AM ? - Endoscopy Services ? Pathologist: ? Risa Vazquez MD ? Specimen: ?Rectal Biopsy ? 11/24/2024 9:53 AM STEPDOWN NURSE [facility] Final Diagnosis Rectum, biopsy: -- Mild to moderate chronic active colitis -- No dysplasia 11/24/2024 9:53 AM STEPDOWN NURSE [facility] Clinical History Lower endoscopy: Clinical history: Surveillance: Ulcerative let cited colitis of 8 or more years duration Endoscopic impression: The examined colon is normal. Localized moderate inflammation in the rectum secondary to colitis. 11/24/2024 9:53 AM STEPDOWN NURSE [facility] Gross Description The specimen is received in a formalin-filled container labeled with the patient's name DearClaudia and rectal biopsy and consists of two cadet tissue fragments (0.2 cm to 0.4 cm in greatest dimension). Entirely submitted in cassette A1. AMA/eh 11/24/2024 9:53 AM STEPDOWN NURSE [facility] Microscopic Description Microscopic examination substantiates the above cited diagnosis. 11/24/2024 9:53 AM STEPDOWN NURSE [facility] Disclaimer All histochemical and/or immunohistochemical results are interpreted with controls that demonstrate appropriate staining reactions before reporting results. Note on use of immunocytochemistry reagents: This test was developed and its performance characteristic determined by [facility], Department of Laboratory Medicine. It has [...] be interpreted with caution. 11/24/2024 9:53 AM STEPDOWN NURSE [facility] Embedded Images 11/24/2024 9:53 AM STEPDOWN NURSE [facility] Pathology/Cytolo gy RECTAL BIOPSY SPECIMEN / Unknown 11/20/2024 2:18 PM STEPDOWN NURSE 11/21/2024 6:46 AM STEPDOWN NURSE Ronni Dave MD LAB - PATHOLOGY/CY TOLOGY ORDERABLES [facility] [address] [place] [address] * Colonscopy Diagnostic (11/20/2024 1:31 PM STEPDOWN NURSE) Report Endoscopy POC _ Patient Name: Claudia Ni ? Procedure Date: 11/20/2024 1:31 PM ? Date of : 1990 ? Admit Type: Outpatient Age: 34 ? Gender: Female Attending MD: Ronni Dave MD, [id number] _ Procedure: ? Colonoscopy Indications: ? High [...] ? preparation was evaluated using the BBPS ([place] Bowel ? Preparation Scale) with scores of: [...] Procedure Code(s): ? --- Professional --- ? 29102, Colonoscopy, flexible; with biopsy, single or multiple ? --- Technical --- ? 75890, Colonoscopy, flexible; with biopsy, single or multiple Diagnosis Code(s): ? --- Professional --- ? K51.50, Left sided colitis without complications ? K52.9, Noninfective gastroenteritis and colitis, unspecified ? --- Technical --- ? K51.50, Left sided colitis without complications ? K52.9, Noninfective gastroenteritis and colitis, unspecified CPT copyright 2020 [employer]. All rights reserved. The codes documented in this report are preliminary and upon heat treating furnace tender review may be revised to meet current compliance requirements. __ Ronni Dave MD 11/20/2024 2:20:56 PM Number of Addenda: 0 Note Initiated On: 11/20/2024 1:31 PM [facility] 11/20/2024 1:31 PM STEPDOWN NURSE Narrative Procedure Note Ronni Dave MD - 11/20/2024 2:21 PM CST colonoscopy done for UC. Inflammation noted in the rectum s/p biopsy.f/u path results. Likely will need to start biologic treatments. Thelma Ibarra FIELD SERVICE SPECIALIST-ALTERATIONS SEWER GI PROCEDURE O RDERABLES Performing Organization Address [facility] Co de Phone Number [facility] [place] [address] * HCG URINE QUALITATIVE - POCT (IP) INTERFACED (11/20/2024 1:26 PM STEPDOWN NURSE) Only the most recent of2 resultswithin the time period is included. HCG Qual Urine Negative Negative 11/20/2024 1:31 PM STEPDOWN NURSE [facility] Urine URINE / Unknown 11/20/2024 1 :26 PM STEPDOWN NURSE 11/20/2024 1:31 PM STEPDOWN NURSE Ronni aDve MD LAB - POINT OF CAR E ORDERABLES Performing Organization Address [facility] Co de Phone Number [facility] [address] [place] [address] * QUANTIFERON-TB GOLD PLUS 1-TUBE (11/17/2024 1:56 PM STEPDOWN NURSE) QuantiFERON TB Gold Plus NEGATIVE NEGATIVE [facility] [...] T-lymphocytes. For additional information, please refer to https://education.[employer].VirtualU/faq/LFX021 (This link is being provided for informational/ educational purposes only.) Test Performed at: [email or web address] [address] ??[phone] BELKYS WILKERSON MD 11/17/2024 1:56 PM STEPDOWN NURSE 11/17/2024 2:05 PM STEPDOWN NURSE Thelma Ibarra FIELD SERVICE SPECIALIST-ALTERATIONS SEWER LAB - CHEMISTR Y ORDERABLES [facility] [address] [place] [address] * (ABNORMAL) THIOPURINE+METABOLITE PANEL (11/17/2024 1:56 PM STEPDOWN NURSE) 6-Thioguanine <50(L) 235 - 400 pmol/8x10( 8)RBC [facility] Comment: (Note) This test was developed and its analytical performance characteristics have been determined by [employer] [facility]. It has not been cleared or approved [...] analytical performance characteristics have been determined by [employer] [employer]. It has not been cleared or approved by the FDA. This assay has been validated pursuant to the CLIA regulations and is used for clinical purposes. [facility] [address] [address],[address] [facility] [address] Anita Kang MD, PhD Test Performed at: [facility] [address] [facility] [address] [place], [place] ??[phone] ANITA KANG MD,PHD 11/17/2024 1:56 PM STEPDOWN NURSE 11/17/2024 2:05 PM STEPDOWN NURSE Thelma Niraj Ibarra FIELD SERVICE SPECIALIST-ALTERATIONS SEWER LAB - THERAPEU TIC DRUG MONITORING ORDERABLES [facility] [address] [place] [address] * (ABNORMAL) HEPATITIS PANEL (11/17/2024 1:56 PM STEPDOWN NURSE) Hepatitis A Virus Antibody Total REACTIVE(A ) NON-REACT [facility] Comment: For additional information, please refer to http://Bluetrain.io/faq/LUU821 (This link is being provided for informational/ educational purposes only.) Hepatitis B Virus Surface Antibody REACTIVE(A ) NON-REACT [facility] Hepatitis B Virus Surface Antigen NON-REACTI VE NON-REACT [facility] Comment: For additional information, please refer to http://Bluet[employer].io/faq/IPE404 (This link is being provided for informational/ educational purposes only.) Hepatitis B Core Virus Antibody Total NON-REACTI VE NON-REACT [facility] Comment: For additional information, please refer to http://Bluet[employer].io/faq/ZGP424 (This link is being provided for informational/ educational purposes only.) Hepatitis C Antibody NON-REACTI VE NON-REACT [facility] Comment: HCV antibody was non-reactive. There is no laboratory evidence of HCV infection. In most cases, no further action is required. However, if recent HCV exposure is suspected, a test for HCV RNA (test code 28496) is suggested. For additional information please refer to http://[employer]/faq/CBC63s4 (This link is being provided for informational/ educational purposes only.) Test Performed at: [email or web address] [address] [place] ??[phone] BELKYS WILKERSON MD Blood BLOOD SPECIMEN / Unknown 11/17/2024 1:56 PM STEPDOWN NURSE 11/17/2024 2:05 PM STEPDOWN NURSE Thelma Ibarra APRN-MARCO LAB - CHEMISTR Y ORDERABLES Performing Organization Address [facility] de Phone Number [facility] [address] [place] [address] * C-REACTIVE PROTEIN (CRP) (11/17/2024 1:56 PM STEPDOWN NURSE) [facility] C-Reactive Protein <3.0 <8.0 mg/L [facility] Comment: Test Performed at: [email or web address] [address] [place] [address] ??[phone] BELKYS WILKERSON MD Blood BLOOD SPECIMEN / Unknown 11/17/2024 1:56 PM STEPDOWN NURSE 11/17/2024 2:05 PM STEPDOWN NURSE Thelma Ibarra APRN-ALTERATIONS SEWER LAB - CHEMISTR Y ORDERABLES Performing Organization Address [facility] de Phone Number [address] [address] * (ABNORMAL) CBC WITH DIFFERENTIAL (11/17/2024 1:56 PM STEPDOWN NURSE) [facility] White Blood Cell Count 6.9 [...] 0.4 % [facility] Comment: Test Performed at: [facility] ??[phone] BELKYS WILKERSON MD Blood BLOOD SPECIMEN / Unknown 11/17/2024 1:56 PM STEPDOWN NURSE 11/17/2024 2:05 PM STEPDOWN NURSE Thelma Ibarra FIELD SERVICE SPECIALIST-ALTERATIONS SEWER LAB - HEMATOLO GY ORDERABLES [address] [address] * COMPREHENSIVE METABOLIC PANEL (11/17/2024 1:56 PM STEPDOWN NURSE) Glucose 80 65 - 99 mg/dL [facility] [...] 29 U/L [facility] Comment: Test Performed at: [facility] ??[phone] BELKYS WILKERSON MD Blood BLOOD SPECIMEN / Unknown 11/17/2024 1:56 PM STEPDOWN NURSE 11/17/2024 2:05 PM STEPDOWN NURSE Thelma Ibarra FIELD SERVICE SPECIALIST-ALTERATIONS SEWER LAB - CHEMISTR Y ORDERABLES [address] [address] * LAB RESULTS ORDER (11/17/2024) Only the most recent of3 resultswithin the time period is included. 11/17/2024 Narrative 11/17/2024 Ordered by an unspecified provider. Scanned Document LAB - THERAPEUTIC DR XAVIER MONITORING ORDERABLES * ENDOSCOPY, COLON, DIAGNOSTIC (08/09/2022 9:16 AM CDT) Report Endoscopy POC _ Patient Name: елена Dan ? Procedure Date: 08/09/2022 9:16 AM ? Date of : 1990 ? Admit Type: Outpatient Age: 31 ? Gender: Female Ethnicity: Not or ? Race: Black or Attending MD: Ronni Dave MD ?? _ Procedure: ? Colonoscopy Indications: ? Hematochezia Providers: ? Ronni Dave MD (Doctor), Oswaldo Vazquez, RN, ? Jean Carver, Liberal Arts Dean Patient Profile: ? 31yo female with rectal bleeding here for diagnostic ? colonoscopy Referring : ?Tasneem Mabry (Referring ) Medicines: [...] Anticoagulants: The patient has taken no ? previous anticoagulant or antiplatelet agents. ? - Prior Aspirin/ NSAID therapy: The patient has taken ? no previous aspirin or NSAID medications. ? - ASA Grade Assessment: I - A normal, healthy patient. ? After I obtained informed consent, the [...] ? preparation was evaluated using the BBPS ([place] Bowel ? Preparation Scale) with scores of: Right Colon = 3, ? Transverse Colon = 3 and Left Colon = 3 (entire mucosa ? seen well with no residual staining, small fragments ? of stool or opaque liquid). The total BBPS score ? equals 9. The terminal ileum, ileocecal valve, ? appendiceal orifice, and rectum were photographed. ? Impression: ?- Localized moderate inflammation was found in the ? rectum secondary to colitis. Biopsied. ? - The distal rectum and anal verge are normal on ? retroflexion view. ? - The examined portion of the ileum was normal. Findings: ? The perianal and digital rectal examinations were normal. ? Localized moderate inflammation characterized by erythema, friability ? and granularity was found in the rectum. Biopsies were taken with a cold ? forceps for histology. ? The retroflexed view of the distal rectum and anal verge was normal and ? showed no anal or rectal abnormalities. ? The terminal ileum appeared normal. _ Recommendation: ?- Discharge patient to home. ? [...] pending pathology results are reviewed for ? surveillance based on pathology results. ? Procedure Code(s): ? --- Professional --- ? 01924, Colonoscopy, flexible; with biopsy, single or multiple ? --- Technical --- ? 07863, Colonoscopy, flexible; with biopsy, single or multiple Diagnosis Code(s): ? --- Professional --- ? K52.9, Noninfective gastroenteritis and colitis, unspecified ? K92.1, Melena (includes Hematochezia) ? --- Technical --- ? K52.9, Noninfective gastroenteritis and colitis, unspecified ? K92.1, Melena (includes Hematochezia) CPT copyright 2019 [employer]. All rights reserved. The codes documented in this report are preliminary and upon heat treating furnace tender review may be revised to meet current compliance requirements. __ Ronni Dave MD 08/09/2022 10:02:59 AM Number of Addenda: 0 Note Initiated On: 08/09/2022 9:16 AM [facility] 08/09/2022 9:16 AM CDT Narrative Procedure Note Ronni Dave MD - 08/09/2022 10:03 AM CDT Colonoscopy done for hematochezia. Mild colitis in the rectum s/p biopsy.No hemorrhoids. Normal TI. f/u path. Consider Lialda or rectalmesalamine depending on path. Ronni Dave MD GI PROCEDURE ORDER [facility] * SKIN TEST PPD - POINT OF CARE (02/10/2018) PPD 0mm Other MISCELLANEOUS SAMPLE S / Unknown 02/10/2018 Mary Grace Person FIELD SERVICE SPECIALIST-ALTERATIONS SEWER LAB - POINT OF CARE ORDERABLES Care Teams Swing Ride Operator Relationship Specialty Start Date End Date Tasneem Mabry, PAIsidraC [address] [facility] [address] [place] [address] PCP - General Physician [place] Architect 08/07/22
--- OUTSIDE RECORDS SUMMARY | 2024-11-27 11:26 | XMS_ITS | Encounter Summary ---
Author Organization [facility] Address [address] [place] [address]. [place], [place] [id number] [place] [id number] Care Team Providers Care Senior Hr Generalist Name Role Phone None, Provider Primary Care Provider Tasneem Colón Primary Care Provider [phone] Encounter Details Date Type Department Care Team (Late st Contact Info) Description 10/25/2020 Prep for Procedure [facility] [place] [address] Damion Aguilera MD [address] [address] Social History Tobacco Use Types Packs/Day Years [...] on file Legal Sex Female 1:28 PM SENIOR TECHNICAL ANALYST Gender Identity Not on file Sexual Orientation Not on file COVID-19 Exposure Response Date Recorded In the last month, have you been in contact with someone who was confirmed or suspected to have Coronavirus / COVID-19? No / Unsure 10/25/2020 11:55 AM SENIOR TECHNICAL ANALYST documented as of this encounter Plan of Treatment Not on file documented as of this encounter Visit Diagnoses Diagnosis Rectal pain- Primary Anal or rectal pain documented in this encounter Additional Health Concerns Infection Onset Date Last Indicated Resolved Time COVID-19 Rule Out 10/25/2020 10/25/2020 10/25/2020 1:11 PM SENIOR TECHNICAL ANALYST COVID-19 Rule Out 03/05/2021 03/05/2021 03/06/2021 4:51 PM CDT documented as of this encounter Care Teams Senior Hr Generalist Relationship Specialty Start Date End Date None, Provider, PCP - General 10/22/19 02/24/22 Tasneem Mabry PA [address] [facility] [address] [place] [address] PCP - General PHYSICIAN [employer] EQU[employer] OPERATOR 02/25/22 documented as of this encounter
--- OUTSIDE RECORDS SUMMARY | 2024-11-27 11:26 | XMS_ITS | Referral Summary ---
Author Organization [facility] Office Center Address [address] [place] [address] Care Team Providers Care Case Finisher Name Role Phone Tasneem Mabry Primary Care Provider [phone] Ronni Dave MD Unavailable [phone] Allergies Active Allergy Reactions Criticality Noted Date Comments Ketorolac Dizziness Low 09/06/2019 Dizziness/Light Headed Medications famotidine (PEPCID) 40 mg tablet Take 1 tablet (40 mg total) by mouth daily 90 tablet 1 4 Active Slynd tablet tabletIndicatio ns:PCOS (polycystic ovarian syndrome) TAKE 1 TABLET(4 MG) BY MOUTH DAILY 28 tablet 3 5 Active drospirenone, contraceptive, (Slynd) tablet tabletIndicatio ns:PCOS (polycystic ovarian syndrome) Take 1 each (4 mg total) by mouth daily 28 tablet 3 4 11/26/19 25 Discontinued Active Problems Problem Noted Date Diagnosed Date Gastroesophageal reflux disease without esophagi tis 04/28/2024 Assessment & Plan (04/28/2024 4:36 PM CDT): Symptoms seem consistent with reflux. She has had this before and responded well to famotidine. Recommend starting. Discussed GERD at length including anatomy, behavioral changes (anti-reflux maneuvers, avoid acidic foods like oranges and tomatoes., avoidance of spicy foods, avoid eating 3-4 hours before bed, elevation of the head of the bed), weight loss and medication options for treatment. Followup if sxs worsen or has hematochezia or hematemeis. Dysuria 04/28/2024 Assessment & Plan (04/28/2024 4:37 PM CDT): Patient with symptoms of urgency. Will check urine culture and dip. Follow up pending those results. Symptoms persist may need further imaging. Diabetes mellitus screening 04/28/2024 Assessment & Plan (04/28/2024 4:37 PM CDT): Check labs Fatigue 04/28/2024 Assessment & Plan (04/28/2024 4:37 PM CDT): Probably multifactorial. Check labs and followup to re-evaluate Screening for STD (sexually transmitted disease) 04/28/2024 Assessment & Plan (04/28/2024 4:40 PM CDT): Patient would like STD screening done check gonorrhea chlamydia by urine. Provided serum testing for HIV hepatitis and syphilis. Positive depression screening 12/03/2023 Unspecified skin changes 12/03/2023 Assessment & Plan (12/03/2023 10:45 PM BICYCLE TAXI DRIVER): Patient has skin changes on her legs. These are large areas of increased pigmentation. Difficult to tell if it has a red or purple hue due to her having dark skin to begin with. I wonder if this is related to her ulcerative colitis. Recommend seeing bed placement coordinator. She will call [place] and get names have bed placement coordinator who accept her insurance and I will be glad to make the referral. Pain of right heel 12/03/2023 Assessment & Plan (12/03/2023 10:44 PM BICYCLE TAXI DRIVER): Patient has noted pain in the right Achilles. She can feel a knot in the area. No history of injury. Recommend calling her insurance to determine which Podiatry she can be referred to. When she determines this will be glad to make the referral for further evaluation PCOS (polycystic ovarian syndrome) 09/16/2023 Assessment & Plan (04/28/2024 4:36 PM CDT): Patient with PCOS. Continue theSLYND. Continue to monitor Assessment & Plan (12/03/2023 10:46 PM BICYCLE TAXI DRIVER): Patient with known PCOS. Currently on SLYND for its anti androgenic effects. She has not having any cycling and she is happy with this. UPT has been negative. Assessment & Plan (09/16/2023 10:55 PM BICYCLE TAXI DRIVER): Symptoms and labs seem most consistent with PCOS. Discussed PCOS at length including pathophys, treatment options and care home sequela not limited to Metabolic syndrome, DM, increased CVrisk. Stressed needs to have a cycle at least q 90 days to avoid increased risk for hyperplasia. Discussed treatment options including anti androgenic medications. Reviewed metformin verses control pills versus spironolactone versus those in combination. She states she does need control so will go ahead and start with the SLYND. Reviewed risks benefits alternatives side effects and proper use. Start on 1st day as cycle. Use backup until complete the entire pack. Will see if this helps prevent the cystic production in the ovaries as well as decrease her androgen levels. Cyst of ovary 07/10/2023 Assessment & Plan (07/10/2023 8:01 AM CDT): Patient went to ER with back pain and CT revealed ovarian cyst. I do not have report to determine the laterality but recommend getting pelvic ultrasound with transvaginal if needed for further evaluation of the cysts. Discussed with patient it will provide us with more information regarding the characteristics of the cyst to determine the need for follow-up. She states she is considering tubal ligation so pending these results will discuss future plan. She would have increased symptoms or pain she is to follow up immediately. She is in agreement with the plan Ulcerative proctitis with rectal bleeding 2022 Assessment & Plan (04/28/2024 4:36 PM CDT): Symptoms are stable by her history with the mesalamine enemas. Continue per GI Assessment & Plan (12/03/2023 10:45 PM BICYCLE TAXI DRIVER): Continue per GI. She is currently doing well on the mesalamine. She states she has not seen blood in her stool in months. Assessment & Plan (09/16/2023 10:53 PM BICYCLE TAXI DRIVER): Continue per GI. She is currently on meth lean Assessment & Plan (07/10/2023 8:00 AM CDT): Continue per Dr. Ronni Merlos at [place]. BMI 25.0-25.9,adult 12/03/2022 Assessment & Plan (04/28/2024 4:36 PM CDT): Weight/BMI is in healthy range. Continue healthy lifestyle to maintain. Assessment & Plan (07/10/2023 8:00 AM CDT): Weight/BMI is in healthy range. Continue healthy lifestyle to maintain. Assessment & Plan (12/03/2022 6:34 PM BICYCLE TAXI DRIVER): Weight/BMI is in healthy range. Continue healthy lifestyle to maintain. Annual physical exam 12/03/2022 Assessment & Plan (12/03/2022 6:35 PM BICYCLE TAXI DRIVER): Encouraged healthy lifestyle, good nutrition and exercise. Encouraged Calcium and Vitamin D and weight bearing exercise for bone health. Reviewed immunizations Reviewed age appropirate screenings. Form completed for her employer. Dizziness 03/23/2021 Assessment & Plan (03/23/2021 2:06 PM CDT): Will evaluate further with labs and 48 hour Holter monitor. Will notify her results as available. Vitamin D deficiency 03/23/2021 Assessment & Plan (04/28/2024 4:36 PM CDT): Supplement Assessment & Plan (03/23/2021 2:06 PM CDT): Continue vitamin-D the same at this time. Will re-evaluate on labs. Acute low back pain due to trauma 03/22/2021 Sleep disturbance 12/22/2020 Assessment & Plan (12/08/2021 9:41 AM BICYCLE TAXI DRIVER): Encourage good sleep habits. Will start by treating the anxiety to see if her sleep improves. Assessment & Plan (03/23/2021 2:07 PM CDT): Will start on Elavil at bedtime. She was advised not to stop abruptly. We discussed increasing dose at week four pending response. Assessment & Plan (12/22/2020 3:27 PM BICYCLE TAXI DRIVER): Discussed starting Trazodone 50mg one hs. Reviewed risks, benefit, alternatives, side effects and proper use. F.u 2 months to reassess or sooner problems/concerns. Other fatigue 08/09/2020 Assessment & Plan (08/09/2020 12:13 PM CDT): Check labs Anxiety, generalized 08/09/2020 Assessment & Plan (12/03/2022 6:34 PM BICYCLE TAXI DRIVER): History of anxiety. Patient states she is managing without medication. Assessment & Plan (05/28/2022 12:38 PM CDT): Patient states she is doing okay mood woo now states when she is at home her anxiety is at a minimal level. When she travels it does increase but now knows not to just try to start a medicine to help with that. If she is going to be travel she will plan ahead and check in with the office before making a change. She denies any suicidal or homicidal thoughts. If this occurs she will contact the office. Assessment & Plan (12/08/2021 9:41 AM BICYCLE TAXI DRIVER): Persistent anxiety symptoms. She responded well to the Lexapro in the past but discontinued it after she thought it was not working. Willing to restart. Lexapro 10 mg called to pharmacy. Reviewed risks benefits alternatives side effects and proper use. Will reassess in 4-6 weeks to see if needs to increase to 20 mg for full effect. Will hold off adding on an ? Sleep Medicine until the anxiety is better controlled as these symptoms are probably intertwined Assessment & Plan (12/22/2020 3:26 PM BICYCLE TAXI DRIVER): Continue lexapro 10mg Continue to monitor. Assessment & Plan (10/24/2020 11:24 PM BICYCLE TAXI DRIVER): Improved with the Lexapro. Discussed increasing dose but she feels like she is doing well. If plateau in sxs control, she is to call and will consider increasing to 20mg. Assessment & Plan (08/09/2020 12:14 PM CDT): Discussed at length treatment options. Encouraged counseling as this is probably grief related. Names provided Start lexapro 10mg one daily. Reviewed risks, benefit, alternatives, side effects and proper use. Resolved Problems Problem Noted Date Diagnosed Date Resolved Date BMI 26.0-26.9,adult 09/16/2023 04/28/20 24 Assessment & Plan (12/03/2023 10:46 PM BICYCLE TAXI DRIVER): Weight/BMI is in healthy range. Continue healthy lifestyle to maintain. Assessment & Plan (09/16/2023 10:53 PM BICYCLE TAXI DRIVER): \Weight/BMI is in healthy range. Continue healthy lifestyle to maintain. Annual physical exam 04/16/2022 022 Blood in stool 12/08/2021 07/10/2023 Assessment & Plan (08/12/2022 5:43 PM CDT): Patient has had persistent symptoms for years. She has finished the Augmentin and still has blood in her stool. Stressed the importance of following with the GI and getting a definitive treatment plan in place. She would like to see Helio Drake at [facility]'. Referral replaced. Will await his recommendations. Assessment & Plan (12/08/2021 9:42 AM BICYCLE TAXI DRIVER): Persistent blood in stool. Will refer to Dr. Cummings at [facility] for additional opinion. Check labs Dark stools 07/02/2021 07/10/2023 Assessment & Plan (07/02/2021 10:28 PM CDT): See proctitis. BMI 23.0-23.9, adult 06/23/2021 023 Assessment & Plan (08/12/2022 5:43 PM CDT): Weight/BMI is in healthy range. Continue healthy lifestyle to maintain. Assessment & Plan (05/28/2022 12:39 PM CDT): Weight/BMI is in healthy range. Continue healthy lifestyle to maintain. Assessment & Plan (06/23/2021 12:01 PM CDT): Weight/BMI is in healthy range. Continue healthy lifestyle to maintain. BMI 23.0-23.9, adult 03/23/2021 021 Assessment & Plan (03/23/2021 1:43 PM CDT): Weight/BMI is in healthy range. Continue healthy lifestyle to maintain. STD exposure 03/23/2021 07/02/2021 Assessment & Plan (03/23/2021 2:06 PM CDT): Will evaluate further on labs, will notify her of result as available. Bilateral impacted cerumen 03/23/2021 0 07/02/2021 Assessment & Plan (03/23/2021 2:06 PM CDT): As she has tried and failed OTC modalities, she will be referred to ENT for further evaluation. Hematochezia in 03/22/202106/06 Urinary tract infectious disease 03/22/2021 07/02/2021 BMI 22.0-22.9, adult 10/07/2020 021 Assessment & Plan (10/24/2020 11:25 PM BICYCLE TAXI DRIVER): Weight/BMI is in healthy range. Continue healthy lifestyle to maintain. Proctitis 08/09/2020 07/10/2023 Assessment & Plan (12/03/2022 6:34 PM BICYCLE TAXI DRIVER): Continue per GI. Patient still having blood in the stool and states has diagnosis of ulcerative colitis. Continue with current medication regimen and strongly encouraged to continue following with the same GI so she can get control of her symptoms and manage her disease. She voiced understanding Assessment & Plan (07/02/2021 10:28 PM CDT): Refer to Dr. Patterson for further evaluation/second opinion. Her labs are stable. Await further recommendations. Assessment & Plan (12/22/2020 3:26 PM BICYCLE TAXI DRIVER): Continue per Dr. Aguilera. Thinks her rectal pain is improving. Assessment & Plan (10/24/2020 11:25 PM BICYCLE TAXI DRIVER): Managed by Dr. Aguilera. Stable. Assessment & Plan (08/09/2020 12:13 PM CDT): Pt is following with Dr. Aguilera. Will request records to better understand plan. She states she stopped the sulfasalzine due to [place] and only taking the steroid. Encouraged to call Dr. Aguilera for instructions. Has Flex sig later in the year. Screening examination for ST D (sexually transmitted disease) 08/09/2020 07/02/2021 Assessment & Plan (08/09/2020 12:13 PM CDT): No known exposure. Check STD screening Hemorrhoids 08/09/2020 08/09/2020 Immunizations Name Administration Dates Next Due DTP 07/03/1996,04/27/1994,02/20/1992 Hep B, Adolescent or Pediatric 08/20/2003,1996 HiB 07/03/1996,02/20/1992 Influenza, Unspecified 12/18/2023(Deferr ed: Patient Refused),11/05/2023(Deferred: Patient Refused),12/06/2022(Deferred: Patient Refused),12/06/2021(Deferred: Patient Refused) MMR 07/03/1996,04/27/1994 OPV 07/03/1996,04/27/1994,02/20/1992 Tdap 08/05/2015 Social History Tobacco Use Types Packs/Day Years Used Date Smoking Tobacco: Never Smokeless Tobacco: Never Tobacco Cessation:Counseling Given: Not Answered Alcohol Use Standard Drinks/Week Comments Never 0 (1 standard drink = 0.6 oz pur e alcohol) AUDIT-C Answer Date Recorded Q1: How often do you have a drink containing alc ohol? Never 12/03/2023 Average Number of Drinks Not on file 024 Q3: How often do you have si x or more drinks on one occasion? 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 Not on file Not on file Not on file Last Filed Vital Signs Vital Sign Reading Time Taken Comments Blood Pressure 108/62 04/28/2024 2:39 PM CDT Pulse 93 04/28/2024 2:39 PM CDT Temperature 36.8 ??C (98.2 ??F) 04/28/2024 2:39 PM CD T Respiratory Rate 16 09/05/2023 11:52 AM CDT Oxygen Saturation 98% 04/28/2024 2:39 PM CDT Inhaled Oxygen Concentration - - Weight 70.3 kg (155 lb) 04/28/2024 2:39 PM CDT Height 165.1 cm (5' 5 ) 04/28/2024 2:39 PM CDT Body Mass Index 25.79 04/28/2024 2:39 PM CDT Plan of Treatment Not on file Procedures Procedure Name Priority Date/Time Associated Diagnosis Comments VITAMIN D 25 HYDROXY Routine 11/17/2024 1:50 PM BICYCLE TAXI DRIVER Vitamin D deficiency VITAMIN B12 Routine 11/17/2024 1:50 PM BICYCLE TAXI DRIVER Fatigue, unspecified type TSH Routine 11/17/2024 1:50 PM BICYCLE TAXI DRIVER Fatigue, unspecified type HEMOGLOBIN A1C Routine 11/17/2024 1:50 PM BICYCLE TAXI DRIVER Diabetes mellitus screening COMPREHENSIVE METABOLIC PANEL Routine 11/17/2024 1:50 PM BICYCLE TAXI DRIVER Fatigue, unspecified type CBC WITH AUTO DIFFERENTIAL Routine 11/17/2024 1:50 PM BICYCLE TAXI DRIVER Fatigue, unspecified type HIV 1/2 ANTIBODY PLUS P24 ANTIGEN Routine 11/17/2024 1:50 PM BICYCLE TAXI DRIVER Screening for STD (sexually transmitted disease) RPR Routine 11/17/2024 1:50 PM BICYCLE TAXI DRIVER Screening for STD (sexually transmitted disease) HEPATITIS PANEL, ACUTE Routine 1:50 PM BICYCLE TAXI DRIVER Screening for STD (sexually transmitted disease) from Last 3 Months Results * HIV 1/2 Antibody plus p24 Antigen Blood (11/17/2024 1:50 PM BICYCLE TAXI DRIVER) [facility] HIV Ag/Ab, 4th gen NON-REACT OLIVIER NON-REACT OLIVIER [facility] Comment: HIV-1 antigen and HIV-1/HIV-2 antibodies were not detected. There is no laboratory evidence of HIV infection. PLEASE NOTE: This information has been disclosed to you from records whose confidentiality may be protected by state law. ??If your state requires such protection, then the state law prohibits you from making any further disclosure of the information without the specific written consent of the person to whom it pertains, or as otherwise permitted by law. A general authorization for the release of medical or other information is NOT sufficient for this purpose. ?? For additional information please refer to http://education.Kodable.Alumnize/faq/DFG353 (This link is being provided for informational/ educational purposes only.) The performance of this assay has not been clinically validated in patients less than 2 years old. Blood 11/17/2024 1:50 PM BICYCLE TAXI DRIVER 11/17/2024 1:51 PM BICYCLE TAXI DRIVER us Tasneem [facility] MICROBIOLOGY - GENERAL ORDERABLES Final Result [facility] [id number] [id number] * (ABNORMAL) CBC with auto differential (11/17/2024 1:50 PM BICYCLE TAXI DRIVER) WBC 6.8 3.8 - 10.8 Thousand/u L [facility] RBC, POC 4.94 3.80 - 5.10 Million/uL [facility] Hgb 13.5 11.7 - 15.5 g/dL [facility] Hct 43.2 35.0 - 45.0 % [facility] MCV 87.4 80.0 - 100.0 fL [facility] MCH 27.3 27.0 - 33.0 pg [facility] MCHC 31.3(L) 32.0 - 36.0 g/dL [facility] Comment: For adults, a slight decrease in the calculated MCHC value (in the range of 30 to 32 g/dL) is most likely not clinically significant; however, it should be interpreted with caution in correlation with other red cell parameters and the patient's clinical condition. Rdw 13.1 11.0 - 15.0 % [facility] Platelets 257 140 - 400 Thousand/u L [facility] MPV 11.5 7.5 - 12.5 fL [facility] Neutrophils, abs 4,515 1,500 - 7,800 cells/uL [facility] Lymphocytes, abs 1,782 850 - 3,900 cells/uL [facility] Monocyte abs 258 200 - 950 cells/uL [facility] Eosinophils, abs 218 15 - 500 cells/uL [facility] Basophils, abs 27 0 - 200 cells/uL [facility] Neutrophils 66.4 % [facility] Lymphocyte pct 26.2 % [facility] Monocytes 3.8 % [facility] Eosinophils 3.2 % [facility] Basophils 0.4 % [facility] Blood 11/17/2024 1:50 PM BICYCLE TAXI DRIVER 11/17/2024 1:51 PM BICYCLE TAXI DRIVER Tasneem [facility] BLOOD ORDERABLES Final Result Performing Organization Address City/[facility]/ZIP Co de Phone Number [facility] [address] [place] [address] * Hepatitis panel, acute Blood (11/17/2024 1:50 PM BICYCLE TAXI DRIVER) Hep A IgM NON-REACTI VE NON-REACT OLIVIER [facility] Comment: For additional information, please refer to http://MightyMeeting/faq/FUD427 (This link is being provided for informational/ educational purposes only.) HepBsAg NON-REACTI VE NON-REACT OLIVIER [facility] Comment: For additional information, please refer to http://MightyMeeting/faq/KFK365 (This link is being provided for informational/ educational purposes only.) Hep B core IgM NON-REACTI VE NON-REACT OLIVIER [facility] Comment: For additional information, please refer to http://MightyMeeting/faq/DIS314 (This link is being provided for informational/ educational purposes only.) Hep C Ab NON-REACTI VE NON-REACT OLIVIER [facility] Comment: HCV antibody was non-reactive. There is no laboratory evidence of HCV infection. In most cases, no further action is required. However, if recent HCV exposure is suspected, a test for HCV RNA (test code 16354) is suggested. For additional information please refer to http://MightyMeeting/faq/AEL33a0 (This link is being provided for informational/ educational purposes only.) Blood 11/17/2024 1:50 PM BICYCLE TAXI DRIVER 11/17/2024 1:51 PM BICYCLE TAXI DRIVER Tasneem [facility] MICROBIOLOGY - GENERAL ORDERABLES Final Result [facility] [address] [place] [address] * (ABNORMAL) Vitamin D 25 hydroxy (11/17/2024 1:50 PM BICYCLE TAXI DRIVER) Pathologist [facility] Vitamin D 25-OH 15(L) 30 - 100 ng/mL [facility] Comment: Vitamin D Status ? 25-OH Vitamin D: Deficiency: ?<20 ng/mL Insufficiency: ? 20 - 29 ng/mL Optimal: ? > or = 30 ng/mL For 25-OH Vitamin D testing on patients on D2-supplementation and patients for whom quantitation of D2 and D3 fractions is required, the QuestAssureD(TM) 25-OH VIT D, (D2,D3), LC/MS/MS is recommended: order code 41777 (patients >2yrs). See Note 1 Note 1 For additional information, please refer to http://education.[employer] Group/faq/YNR366 (This link is being provided for informational/ educational purposes only.) Blood 11/17/2024 1:50 PM BICYCLE TAXI DRIVER 11/17/2024 1:51 PM BICYCLE TAXI DRIVER Tasneem [facility] BLOOD ORDERABLES Final Result Performing Organization Address [facility] Co de Phone Number [facility] [address] [place] [address] * RPR Blood (11/17/2024 1:50 PM BICYCLE TAXI DRIVER) [facility] RPR NON-REACTIV E NON-REACTI VE [facility] Blood 11/17/2024 1:50 PM BICYCLE TAXI DRIVER 11/17/2024 1:51 PM BICYCLE TAXI DRIVER Tasneem [facility]CRO[facility]OLOGY - GENERAL ORDERABLES Final Result Performing Organization Address [facility] Co de Phone Number [facility] Manuel [address] [place] [address] * TSH (11/17/2024 1:50 PM BICYCLE TAXI DRIVER) Pathologist [facility] TSH 2.41 mIU/L [facility] Comment: ?Reference Range ?> or = 20 Years ??0.40-4.50 ? Ranges ?First trimester ?0.26-2.66 ?Second trimester ?? 0.55-2.73 ?Third trimester ?0.43-2.91 Blood 11/17/2024 1:50 PM BICYCLE TAXI DRIVER 11/17/2024 1:51 PM BICYCLE TAXI DRIVER us Tasneem [facility] BLOOD ORDERABLES Final Result Performing Organization Address [facility] de Phone Number [facility] [address] [place] [address] * (ABNORMAL) Hemoglobin A1c (11/17/2024 1:50 PM BICYCLE TAXI DRIVER) Pathologist [facility] Hgb A1C 5.8(H) <5.7 % of total Hgb [facility] Comment: For someone without known diabetes, a hemoglobin A1c value between 5.7% and 6.4% is consistent with prediabetes and should be confirmed with a follow-up test. For someone with known diabetes, a value <7% indicates that their diabetes is well controlled. A1c targets should be individualized based on duration of diabetes, age, comorbid conditions, and other considerations. This assay result is consistent with an increased risk of diabetes. Currently, no consensus exists regarding use of hemoglobin A1c for diagnosis of diabetes for children. Blood 11/17/2024 1:50 PM BICYCLE TAXI DRIVER 11/17/2024 1:51 PM BICYCLE TAXI DRIVER Tasneem [facility] BLOOD ORDERABLES Final Result Performing Organization Address City/[facility]/ZIP Co de Phone Number [facility] [address] [place] [address] * Vitamin B12 (11/17/2024 1:50 PM BICYCLE TAXI DRIVER) Vitamin B12 304 200 - 1,100 pg/mL [facility] Comment: Please Note: Although the reference range for vitamin B12 is 200-1100 pg/mL, it has been reported that between 5 and 10% of patients with values between 200 and 400 pg/mL may experience neuropsychiatric and hematologic abnormalities due to occult B12 deficiency; less than 1% of patients with values above 400 pg/mL will have symptoms. Blood 11/17/2024 1:50 PM BICYCLE TAXI DRIVER 11/17/2024 1:51 PM BICYCLE TAXI DRIVER Tasneem [facility] BLOOD ORDERABLES Final Result Performing Organization Address [facility] de Phone Number [facility] [address] [place] [address] * Comprehensive metabolic panel (11/17/2024 1:50 PM BICYCLE TAXI DRIVER) Pathologist [facility] Glucose 82 65 - 99 mg/dL [facility] Comment: ? Fasting reference interval BUN 14 7 - 25 mg/dL [facility] Creatinine 0.82 0.50 - 0.97 mg/dL [facility] eGFR 97 > OR = 60 mL/min/1.7 3m2 [facility] BUN/creat ratio SEE NOTE: 6 22 (calc) [facility] Comment: ?? Not Reported: BUN and Creatinine are within ?? reference range. ? Sodium 138 135 - 146 mmol/L [facility] Potassium, pl 3.8 3.5 - 5.3 mmol/L [facility] Chloride 105 98 - 110 mmol/L [facility] CO2 26 20 - 32 mmol/L [facility] Calcium 9.0 8.6 - 10.2 mg/dL [facility] Protein, sr 7.0 6.1 - 8.1 g/dL [facility] Albumin 3.9 3.6 - 5.1 g/dL [facility] GLOBULIN 3.1 1.9 - 3.7 g/dL (calc) [facility] Alb/glob ratio 1.3 1.0 - 2.5 (calc) [facility] Bilirubin, total 0.7 0.2 - 1.2 mg/dL [facility] Alk phos 51 31 - 125 U/L [facility] AST 17 10 - 30 U/L [facility] ALT (SGPT) 26 6 - 29 U/L [facility] Blood 11/17/2024 1:50 PM BICYCLE TAXI DRIVER 11/17/2024 1:51 PM BICYCLE TAXI DRIVER Tasneem [facility] BLOOD ORDERABLES Final Result [facility] [address] [place] [address] from Last 3 Months Insurance [facility] Care Teams Case Finisher Relationship Specialty Start Date End Date Tasneem Mabry PA [address] [place] [address] PCP - General Internal Medicine 08/09/20 Ronni Dave MD [address] [place] [address] Gastroenterology 11/27/22
--- OUTSIDE RECORDS SUMMARY | 2024-11-27 11:26 | XMS_ITS | Clinical Summary ---
Author Organization [facility] Address [address] [place] [address] Care Team Providers Care Pharmacy District Manager Name Role Phone Tasneem Mabry Primary Care Provider [phone] Ronni Dave MD Unavailable [phone] Allergies Active Allergy Reactions Criticality Noted Date [...] 12/03/2023 Assessment & Plan (12/03/2023 10:45 PM STEAMBOAT CAPTAIN): Patient has skin changes on her legs. These are large areas of increased pigmentation. Difficult to tell if it has a red or purple hue due to her having dark skin to begin with. I wonder if this is related to her ulcerative colitis. Recommend seeing blower operator. She will call [facility] and get names have blower operator who accept her insurance and I will be glad to make the referral. Pain of right heel 12/03/2023 Assessment & Plan (12/03/2023 10:44 PM STEAMBOAT CAPTAIN): Patient has noted pain in the right [...] monitor Assessment & Plan (12/03/2023 10:46 PM STEAMBOAT CAPTAIN): Patient with known PCOS. Currently on SLYND for its anti androgenic effects. She has not having any cycling and she is happy with this. UPT has been negative. Assessment & Plan (09/16/2023 10:55 PM STEAMBOAT CAPTAIN): Symptoms and labs seem most consistent with PCOS. Discussed PCOS at length including pathophys, treatment options and skilled nursing sequela not limited to Metabolic syndrome, DM, [...] GI Assessment & Plan (12/03/2023 10:45 PM STEAMBOAT CAPTAIN): Continue per GI. She is currently doing well on the mesalamine. She states she has not seen blood in her stool in months. Assessment & Plan (09/16/2023 10:53 PM STEAMBOAT CAPTAIN): Continue per GI. She is currently on meth lean Assessment & Plan (07/10/2023 8:00 AM CDT): Continue per Dr. Ronni Merlos at [facility]. BMI 25.0-25.9,adult 12/03/2022 Assessment & Plan (04/28/2024 4:36 PM CDT): Weight/BMI is in healthy range. Continue healthy lifestyle to maintain. Assessment & Plan (07/10/2023 8:00 AM CDT): Weight/BMI is in healthy range. Continue healthy lifestyle to maintain. Assessment & Plan (12/03/2022 6:34 PM STEAMBOAT CAPTAIN): Weight/BMI is in healthy range. Continue healthy lifestyle to maintain. Annual physical exam 12/03/2022 Assessment & Plan (12/03/2022 6:35 PM STEAMBOAT CAPTAIN): Encouraged healthy lifestyle, good nutrition and exercise. [...] 12/22/2020 Assessment & Plan (12/08/2021 9:41 AM STEAMBOAT CAPTAIN): Encourage good sleep habits. Will start by treating the anxiety to see if her sleep improves. Assessment & Plan (03/23/2021 2:07 PM CDT): Will start on Elavil at bedtime. She was advised not to stop abruptly. We discussed increasing dose at week four pending response. Assessment & Plan (12/22/2020 3:27 PM STEAMBOAT CAPTAIN): Discussed starting Trazodone 50mg one hs. Reviewed risks, benefit, alternatives, side effects and proper use. F.u 2 months to reassess or sooner problems/concerns. Other fatigue 08/09/2020 Assessment & Plan (08/09/2020 12:13 PM CDT): Check labs Anxiety, generalized 08/09/2020 Assessment & Plan (12/03/2022 6:34 PM STEAMBOAT CAPTAIN): History of anxiety. Patient states she is [...] office. Assessment & Plan (12/08/2021 9:41 AM STEAMBOAT CAPTAIN): Persistent anxiety symptoms. She responded well to [...] intertwined Assessment & Plan (12/22/2020 3:26 PM STEAMBOAT CAPTAIN): Continue lexapro 10mg Continue to monitor. Assessment & Plan (10/24/2020 11:24 PM STEAMBOAT CAPTAIN): Improved with the Lexapro. Discussed increasing dose [...] 24 Assessment & Plan (12/03/2023 10:46 PM STEAMBOAT CAPTAIN): Weight/BMI is in healthy range. Continue healthy lifestyle to maintain. Assessment & Plan (09/16/2023 10:53 PM STEAMBOAT CAPTAIN): \Weight/BMI is in healthy range. Continue healthy [...] would like to see Helio Drake at [facility]'. Referral replaced. Will await his recommendations. Assessment & Plan (12/08/2021 9:42 AM STEAMBOAT CAPTAIN): Persistent blood in stool. Will refer to Dr. Cummings at [facility] for additional opinion. Check labs [...] 021 Assessment & Plan (10/24/2020 11:25 PM STEAMBOAT CAPTAIN): Weight/BMI is in healthy range. Continue healthy lifestyle to maintain. Proctitis 08/09/2020 07/10/2023 Assessment & Plan (12/03/2022 6:34 PM STEAMBOAT CAPTAIN): Continue per GI. Patient still having blood [...] recommendations. Assessment & Plan (12/22/2020 3:26 PM STEAMBOAT CAPTAIN): Continue per Dr. Aguilera. Thinks her rectal pain is improving. Assessment & Plan (10/24/2020 11:25 PM STEAMBOAT CAPTAIN): Managed by Dr. Aguilera. Stable. 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 Not on file Not on file Not on file Obstetrics History Last Filed Vital Signs Vital Sign Reading [...] 04/28/2024 2:39 PM CDT Plan of Treatment Health Maintenance Due Date Last Done Comments Cervical Cancer Screening 1991 Varicella Vaccines (1 of 2 - 13+ 2-dose series) 2004 Regular Well Visit/Exam 18-64 11/27/2023 11/27/2022 Covid-19 Vaccine (2 - season) 2024 03/11/2022 Influenza Vaccine (#1) 2024 Depression Screening 04/28/2025 04/28/2024, 12/03/2023, 12/03/2023, Additional history exists DTaP/Tdap/Td Vaccine (5 - Td or Tdap) 08/05/2025 08/05/2015, 07/03/1996, 04/27/1994, Additional history exists Hepatitis C Screening Completed 11/17/2024, 020 HPV Vaccines Aged Out No longer eligi ble based on patient's age to complete this topic Pneumococcal vaccine <65 Aged Out No longer eligible based on patient's age to complete this topic Procedures Procedure Name Priority Date/Time Associated Diagnosis Comments VITAMIN D 25 HYDROXY Routine 11/17/2024 1:50 PM STEAMBOAT CAPTAIN Vitamin D deficiency VITAMIN B12 Routine 11/17/2024 1:50 PM STEAMBOAT CAPTAIN Fatigue, unspecified type TSH Routine 11/17/2024 1:50 PM STEAMBOAT CAPTAIN Fatigue, unspecified type HEMOGLOBIN A1C Routine 11/17/2024 1:50 PM STEAMBOAT CAPTAIN Diabetes mellitus screening COMPREHENSIVE METABOLIC PANEL Routine 11/17/2024 1:50 PM STEAMBOAT CAPTAIN Fatigue, unspecified type CBC WITH AUTO DIFFERENTIAL Routine 11/17/2024 1:50 PM STEAMBOAT CAPTAIN Fatigue, unspecified type HIV 1/2 ANTIBODY PLUS P24 ANTIGEN Routine 11/17/2024 1:50 PM STEAMBOAT CAPTAIN Screening for STD (sexually transmitted disease) RPR Routine 11/17/2024 1:50 PM STEAMBOAT CAPTAIN Screening for STD (sexually transmitted disease) HEPATITIS PANEL, ACUTE Routine 1:50 PM STEAMBOAT CAPTAIN Screening for STD (sexually transmitted disease) from Last 3 Months Results * HIV 1/2 Antibody plus p24 Antigen Blood (11/17/2024 1:50 PM STEAMBOAT CAPTAIN) Pathologist [facility] HIV Ag/Ab, 4th gen NON-REACT OLIVIER NON-REACT OLIVIER [facility] Comment: HIV-1 antigen and HIV-1/HIV-2 antibodies were [...] ?? For additional information please refer to http://education.[employer]/faq/IYI016 (This link is being provided for informational/ educational purposes only.) The performance of this assay has not been clinically validated in patients less than 2 years old. Blood 11/17/2024 1:50 PM STEAMBOAT CAPTAIN 11/17/2024 1:51 PM STEAMBOAT CAPTAIN Tasneem [facility] MICROBIOLOGY - GENERAL ORDERABLES Final Result Performing Organization Address City/State/[facility] Co de Phone Number [facility] [address] [place] [address] * (ABNORMAL) CBC with auto differential (11/17/2024 1:50 PM STEAMBOAT CAPTAIN) Pathologist [facility] WBC 6.8 3.8 - 10.8 Thousand/u L [...] [facility] Blood 11/17/2024 1:50 PM STEAMBOAT CAPTAIN 11/17/2024 1:51 PM STEAMBOAT CAPTAIN Tasneem [facility] BLOOD ORDERABLES Final Result Performing Organization Address City/State/[facility] Co de Phone Number [facility] [address] [place] [address] * Hepatitis panel, acute Blood (11/17/2024 1:50 PM STEAMBOAT CAPTAIN) Hep A IgM NON-REACTI VE NON-REACT OLIVIER [facility] Comment: For additional information, please refer to http://SameGrain.Adjug.XanEdu/faq/KBG748 (This link is being provided for informational/ educational purposes only.) HepBsAg NON-REACTI VE NON-REACT OLIVIER [facility] Comment: For additional information, please refer to http://education.[employer]/faq/TJH582 (This link is being provided for informational/ educational purposes only.) Hep B core IgM NON-REACTI VE NON-REACT OLIVIER [facility] Comment: For additional information, please refer to http://SameGrain.[employer]/faq/GJE404 (This link is being provided for informational/ educational purposes only.) Hep C Ab NON-REACTI VE NON-REACT OLIVIER [facility] Comment: HCV antibody was non-reactive. There is no laboratory evidence of HCV infection. In most cases, no further action is required. However, if recent HCV exposure is suspected, a test for HCV RNA (test code 87597) is suggested. For additional information please refer to http://SameGrain.[employer]/faq/YOY32u9 (This link is being provided for informational/ educational purposes only.) Blood 11/17/2024 1:50 PM STEAMBOAT CAPTAIN 11/17/2024 1:51 PM STEAMBOAT CAPTAIN Tasneem [facility] MICROBIOLOGY - GENERAL ORDERABLES Final Result [facility] [address] [place] [address] * (ABNORMAL) Vitamin D 25 hydroxy (11/17/2024 1:50 PM STEAMBOAT CAPTAIN) Vitamin D 25-OH 15(L) 30 - 100 ng/mL [facility] Comment: Vitamin D Status ? 25-OH Vitamin D: Deficiency: ?<20 ng/mL Insufficiency: ? 20 - 29 ng/mL Optimal: ? > or = 30 ng/mL For 25-OH Vitamin D testing on patients on D2-supplementation and patients for whom quantitation of D2 and D3 fractions is required, the [facility](TM) 25-OH VIT D, (D2,D3), LC/MS/MS is recommended: order code 53263 (patients >2yrs). See Note 1 Note 1 For additional information, please refer to http://education.K[employer]./faq/FSV549 (This link is being provided for informational/ educational purposes only.) Blood 11/17/2024 1:50 PM STEAMBOAT CAPTAIN 11/17/2024 1:51 PM STEAMBOAT CAPTAIN Tasneem [facility] BLOOD ORDERABLES Final Result Performing Organization Address [facility] Co de Phone Number [facility] [address] [place] [address] * RPR Blood (11/17/2024 1:50 PM STEAMBOAT CAPTAIN) RPR NON-REACTIV E NON-REACTI VE [facility] Blood 11/17/2024 1:50 PM STEAMBOAT CAPTAIN 11/17/2024 1:51 PM STEAMBOAT CAPTAIN Tasneem [facility] MICROBIOLOGY - GENERAL ORDERABLES Final Result Performing Organization Address [facility] de Phone Number [facility] [address] [place] [address] * TSH (11/17/2024 1:50 PM STEAMBOAT CAPTAIN) TSH 2.41 mIU/L [facility] Comment: ?Reference Range ?> or = 20 Years ??0.40-4.50 ? Ranges ?First trimester ?0.26-2.66 ?Second trimester ?? 0.55-2.73 ?Third trimester ?0.43-2.91 Blood 11/17/2024 1:50 PM STEAMBOAT CAPTAIN 11/17/2024 1:51 PM STEAMBOAT CAPTAIN Result [facility] Tasneem [facility] BLOOD ORDERABLES Final Result Performing Organization Address [facility] de Phone Number [facility] [address] [place] [address] * (ABNORMAL) Hemoglobin A1c (11/17/2024 1:50 PM STEAMBOAT CAPTAIN) [facility] Hgb A1C 5.8(H) <5.7 % of total Hgb [facility] Comment: For someone without known [...] diabetes for children. Blood 11/17/2024 1:50 PM STEAMBOAT CAPTAIN 11/17/2024 1:51 PM STEAMBOAT CAPTAIN Result [facility] Tasneem [facility] BLOOD ORDERABLES Final Result Performing Organization Address [facility] de Phone Number [facility] [address] [place] [address] * Vitamin B12 (11/17/2024 1:50 PM STEAMBOAT CAPTAIN) Pathologist [facility] Vitamin B12 304 200 - 1,100 pg/mL [facility] Comment: Please Note: Although the reference range for vitamin B12 is 200-1100 pg/mL, it has been reported that between 5 and 10% of patients with values between 200 and 400 pg/mL may experience neuropsychiatric and hematologic abnormalities due to occult B12 deficiency; less than 1% of patients with values above 400 pg/mL will have symptoms. Blood 11/17/2024 1:50 PM STEAMBOAT CAPTAIN 11/17/2024 1:51 PM STEAMBOAT CAPTAIN Result [facility] Tasneem [facility] BLOOD ORDERABLES Final Result [facility] [address] [id number] * Comprehensive metabolic panel (11/17/2024 1:50 PM STEAMBOAT CAPTAIN) Glucose 82 65 - 99 mg/dL [facility] Comment: ? Fasting reference interval BUN 14 7 - 25 mg/dL [email or web address] Creatinine 0.82 0.50 - 0.97 mg/dL [email or web address] eGFR 97 > OR = 60 mL/min/1.7 3m2 [facility] BUN/creat ratio SEE NOTE: (calc) [facility] Comment: ?? Not Reported: BUN and Creatinine are within ?? reference range. ? Sodium 138 135 - 146 mmol/L [facility] Potassium, pl 3.8 3.5 - 5.3 mmol/L [facility] Chloride 105 98 - 110 mmol/L [facility] CO2 26 20 - 32 mmol/L [facility] Calcium 9.0 8.6 - 10.2 mg/dL [facility] Protein, sr 7.0 6.1 - 8.1 g/dL [facility] Albumin 3.9 3.6 - 5.1 g/dL [facility] GLOBULIN 3.1 1.9 - 3.7 g/dL (calc) [facility] Alb/glob ratio 1.3 1.0 - 2.5 (calc) [facility] Bilirubin, total 0.7 0.2 - 1.2 mg/dL [facility] Alk phos 51 31 - 125 U/L [facility] AST 17 10 - 30 U/L [facility] ALT (SGPT) 26 6 - 29 U/L [facility] Blood 11/17/2024 1:50 PM STEAMBOAT CAPTAIN 11/17/2024 1:51 PM STEAMBOAT CAPTAIN Tasneem [facility] BLOOD ORDERABLES Final Result [facility] [address] [place] [address] from Last 3 Months Insurance [facility] Care Teams Pharmacy District Manager Relationship Specialty Start Date End Date Tasneem Mabry PA [address] [place], [place] [phone] PCP - General Internal Medicine 08/09/20 Ronni Dave MD [address] [place], [place] [id number] Gastroenterology 11/27/22
== END 2024-11-24 08:24 | disposition home or self-care (01) ==
PROVIDERS: Emergency Medicine; Emergency Provider Emergency Medicine; PCP Physician Assistant
DX: K62.5 Hemorrhage of anus and rectum (principal); K51.90 Ulcerative colitis, unspecified, without complications
CPT/HCPCS: 36415; 74177; 80053; 81025; 85025; 85610; 85730; 86850; 86900; 86901; 99284; Q9967